=== PATIENT | male | born 1960 | race Caucasian/White ===

== ENCOUNTER 2019-07-20 21:14 | Inpatient (IN) | payer MEDICAID ==
[2019-07-20] MEDS ORDERED: Zofran 4 MG/2 ML VIAL IV ONE (21:43)
[2019-07-20] MEDS ORDERED: BABY ASPIRIN 81 MG CHEW PO ONE (21:43)
[2019-07-20] MEDS ORDERED: MORPHINE SULFATE 4 MG INJ IV ONE (21:43)
--- NOTE | 2019-07-20 21:43 | ERPHSYRPT ---
- History of Present Illness Time Seen by Provider: 07/20/19 21:32 Historian: patient Exam Limitations: no limitations Patient Subjective Stated Complaint: chest pain opff and on for 3 days also had drooping of his face but he refused to come to hospital Triage Nursing Assessment: pt is alert [id number], able to ambulate by self , gait is steady, no facial paralysis noted smile symetrical, no dysphasis or aphasia , but patient states face going numb in jaw or cheek , no edema noted, lungs clear Physician History: 58 years old male with a heavy tobacco abuse, hypertension, previous stroke with some residual weakness on the left side, multiple TIAs in the past for COPD, chronic pain syndrome but recent cervical spine surgery presented to the ER with chief complaint of moderate dull to sharp squeezing substernal/left- sided chest pain with radiation to left shoulder/neck/jaw intermittently for the last 3 days progressively worsening associated with shortness of breath/ palpitations. also reports he had some facial droop 3 days ago which is resolved at present. He does have intermittent tingling and numbness sensation in left upper extremity since he has neck surgery. Denies any history of coronary artery disease but no cardiac catheter or CT angiogram/stress test done recently. Denies any focal weakness, visual symptoms or speech impairment. Timing/Duration: day(s) (3) Quality: pressure, sharpness, tightness Location: substernal Chest Pain Radiation: jaw, neck, arm Severity of Pain-Max: moderate Severity of Pain-Current: moderate Modifying Factors: Improves With: nothing Associated Symptoms: palpitations, shortness of breath, No weakness, No syncope , No headache, No dizziness, No back pain Nitro Today/Relief: no nitro taken today Aspirin Treatment Today: 325 mg x 1 (THIS AM) Allergies/Adverse Reactions: gabapentin Allergy (Verified 07/20/19 21:28) latex Allergy (Verified 07/20/19 21:28) Penicillins Allergy (Verified 07/20/19 21:28) Home Medications: Aspirin 81 gm Chew [Baby Aspirin 81 mg Chew] 81 mg PO DAILY 07/20/19 [ History] Atorvastatin Calcium 40 mg PO DAILY 07/20/19 [History] Citalopram Hydrobromide [Celexa] 40 mg PO DAILY 07/20/19 [History] Diazepam [Valium] 4 mg PO Q6H 07/20/19 [History] Ferrous Gluconate 324 mg PO 07/20/19 [History] Hydrocodone Bit/Acetaminophen [Hydrocodon-Acetaminophen 5-325] 1 tab PO BID [History] Hydrocodone Bit/Acetaminophen [Hydrocodon-Acetaminophn 10-325] 1 tab PO DAILY [History] Loratadine 10 mg [Claritin 10 mg] 10 mg PO DAILY 07/20/19 [History] Losartan Potassium 100 mg PO DAILY 07/20/19 [History] Mometasone Furoate [Asmanex] 220 mcg IH 07/20/19 [History] PANTOPRAZOLE 40 mg Tablet [Protonix 40MG Tablet] 40 mg PO BID 07/20/19 [ History] Ropinirole HCl [Requip] 0.25 mg PO HS 07/20/19 [History] Sennosides/Docusate Sodium [Docusate Sodium-Sennosides Tab] 2 tab PO BID [History] Sildenafil Citrate 100 mg PO PRN 07/20/19 [History] Tizanidine HCl 4 mg [Zanaflex 4 MG] 4 mg PO 07/20/19 [History] Verapamil HCl 80 mg [Calan 80 mg] 80 mg PO TID 07/20/19 [History] diazePAM [Diazepam] 5 mg PO DAILY 07/20/19 [History] guaiFENesin [Guaifenesin] 400 mg PO Q4H 07/20/19 [History] Hx Tetanus, Diphtheria Vaccination/Date Given: Yes Hx Influenza Vaccination/Date Given: Yes Hx Pneumococcal Vaccination/Date Given: Yes Immunizations Up to Date: Yes - Review of Systems Constitutional: No Symptoms Eyes: No Symptoms Ears, Nose, & Throat: No Symptoms Respiratory: Cough, Dyspnea on Exertion (CARLOS), Wheezing Cardiac: Chest Pain, Palpitations Abdominal/Gastrointestinal: Abdominal Pain (chronic) Genitourinary Symptoms: No Symptoms Musculoskeletal: Arthralgias, Back Pain, Neck Pain, Joint Pain Skin: No Symptoms Neurological: Parasthesia, Sensory Changes Psychological: No Symptoms Endocrine: No Symptoms Hematologic/Lymphatic: No Symptoms Immunological/Allergic: No Symptoms - Past Medical History Pertinent Past Medical History: Yes Neurological History: Stroke, TIA Cardiac History: Hypertension, Other Respiratory History: COPD, Emphysema Musculoskeletal History: Arthritis, Degenerative Disk Disease, Other GI Medical History: Diverticulosis Psycho-Social History: Depression - Past Surgical History Past Surgical History: Yes Gastrointestinal: Hernia Repair Musculoskeletal: Orthopedic Surgery Other Surgical History: took out 3 discs and put in 3 cages with 8 screw in neck , linnette surgery - Social History Smoking Status: Current every day smoker Drug Use: none Patient Lives Alone: No - Nursing Vital Signs Nursing Vital Signs: Initial Vital Signs Temperature 98.3 F 07/20/19 21:15 Pulse Rate 85 07/20/19 21:15 Respiratory Rate 18 07/20/19 21:15 Blood Pressure 145/94 07/20/19 21:15 O2 Sat by Pulse Oximetry 99 07/20/19 21:15 Pain Scale Pain Intensity 9 - Physical Exam General Appearance: no apparent distress Eye Exam: PERRL/EOMI, eyes nml inspection, No scleral icterus Ears, Nose, Throat Exam: normal ENT inspection, pharynx normal, moist mucous membranes Neck Exam: normal inspection, supple, full range of motion, midline tenderness ( fron surgery) Respiratory Exam: wheezing, No chest tenderness, No accessory muscle use Cardiovascular Exam: regular rate/rhythm, normal heart sounds, normal peripheral pulses Gastrointestinal/Abdomen Exam: soft, tenderness Neurologic Exam: oriented x 3, cooperative, border guard II-XII nml as tested, normal mood/affect, sensory deficit (decreased sensations of touch left face /cheek but normal forehead) Skin Exam: normal color SpO2 Interpretation: normal SpO2: 99 O2 Delivery: Room Air - Course Nursing assessment & vital signs reviewed: Yes EKG Interpreted by Me: RATE (84), NORMAL AXIS, Non-specific ST Changes Ordered Tests: Active Orders 24 hr Category Date Time Status Run Boat Operator STAT Care 07/20/19 21:44 Active IV Insertion STAT Care 07/20/19 21:43 Active CHEST 1 VIEW (PORTABLE) Stat Exams 07/20/19 22:36 Ordered CHEST WITH CONTRAST [CT] Stat Exams 07/20/19 23:10 Ordered HEAD WITHOUT CONTRAST [CT] Stat Exams 07/20/19 21:46 Taken CBC W DIFF Stat Lab 07/20/19 21:54 Completed CMP Stat Lab 07/20/19 21:54 Completed D-DIMER QUANTITATION Stat Lab 07/20/19 22:47 Completed NT PRO BNP Stat Lab 07/20/19 21:54 Completed PROTIME WITH INR Stat Lab 07/20/19 21:54 Completed PTT Stat Lab 07/20/19 21:54 Completed TROPONIN Q3H Lab 07/20/19 21:54 Completed TROPONIN Q3H Lab 07/21/19 00:45 Ordered TROPONIN Q3H Lab 07/21/19 03:45 Ordered TROPONIN Q3H Lab 07/21/19 06:45 Ordered TROPONIN Q3H Lab 07/21/19 09:45 Ordered Peak Expiratory Flow Rate ONCE RT 07/20/19 22:05 Active Respiratory Therapy Assessment DAILY RT 07/20/19 22:05 Active Transfer Order Routine Transfer 07/21/19 Ordered Medication Summary Discontinued Medications Generic Name Dose Route Start Last Admin Trade Name Freq PRN Reason Stop Dose Admin Albuterol/Ipratropium 3 ml 07/20/19 21:54 07/20/19 22:06 Duoneb 0.5-3 Mg/3 Ml Neb IH 07/20/19 21:55 3 ml STAT ONE Administration Albuterol/Ipratropium Confirm 07/20/19 22:04 Duoneb 0.5-3 Mg/3 Ml Neb Administered 07/20/19 22:05 Dose 3 ml IH .STK-MED ONE Aspirin 324 mg 07/20/19 21:43 07/20/19 22:39 Baby Aspirin 81 Mg Chew PO 07/20/19 21:44 324 mg STAT ONE Administration Aspirin Confirm 07/20/19 22:38 Baby Aspirin 81 Mg Chew Administered 07/20/19 22:39 Dose 324 mg .ROUTE .STK-MED ONE Morphine Sulfate 4 mg 07/20/19 21:43 07/20/19 22:17 Morphine Sulfate 4 Mg Inj IV 07/20/19 21:44 4 mg STAT ONE Administration Morphine Sulfate Confirm 07/20/19 21:54 Morphine Sulfate 4 Mg Inj Administered 07/20/19 21:55 Dose 4 mg .ROUTE .STK-MED ONE Morphine Sulfate 4 mg 07/21/19 00:57 07/21/19 01:03 Morphine Sulfate 4 Mg Inj IV 07/21/19 00:58 4 mg STAT ONE Administration Morphine Sulfate Confirm 07/21/19 00:56 Morphine Sulfate 4 Mg Inj Administered 07/21/19 00:57 Dose 4 mg .ROUTE .STK-MED ONE Nitroglycerin 1 gm 07/20/19 22:35 07/20/19 22:39 Nitro-Bid 2% Ud Packets TOP 07/20/19 22:36 1 gm STAT ONE Administration Nitroglycerin Confirm 07/20/19 22:38 Nitro-Bid 2% Ud Packets Administered 07/20/19 22:39 Dose 1 gm .ROUTE .STK-MED ONE Ondansetron HCl 4 mg 07/20/19 21:43 07/20/19 22:17 Zofran 4 Mg/2 Ml Vial IV 07/20/19 21:44 4 mg STAT ONE Administration Ondansetron HCl Confirm 07/20/19 21:54 Zofran 4 Mg/2 Ml Vial Administered 07/20/19 21:55 Dose 4 mg .ROUTE .STK-MED ONE Lab/Rad Data: Laboratory Result Diagrams 07/20/19 21:54 07/20/19 21:54 Laboratory Results 07/20/19 07/20/19 07/20/19 Range/Units 22:47 21:54 21:54 WBC (4.0-10.5) K/mm3 RBC (4.1-5.6) M/mm3 Hgb (12.5-18.0) gm/dl Hct (42-50) % MCV (78-100) fl MCH (26-32) pg MCHC (32-36) g/dl RDW (11.5-14.0) % Plt Count (150-450) K/mm3 MPV (6-9.5) fl Gran % (36.0-66.0) % Eos # (Auto) (0-0.5) Absolute Lymphs (auto) (1.0-4.6) Absolute Monos (auto) (0.0-1.3) Lymphocytes % (24.0-44.0) % Monocytes % (0.0-12.0) % Eosinophils % (0.00-5.0) % Basophils % (0.0-0.4) % Absolute Granulocytes (1.4-6.9) Basophils # (0-0.4) PT 11.8 (8.83-12.87) SECONDS INR 1.04 (0.8-3.0) APTT 31.3 (24.1-36.1) SECONDS D-Dimer 687 H* (215-500) ng/mL Sodium (137-145) mmol/L Potassium (3.5-5.1) mmol/L Chloride (98-107) mmol/L Carbon Dioxide (22-30) mmol/L Anion Gap (5-15) MEQ/L BUN (9-20) mg/dL Creatinine (0.66-1.25) mg/dL Estimated GFR ML/MIN Glucose (74-106) mg/dL Calcium (8.4-10.2) mg/dL Total Bilirubin (0.2-1.3) mg/dL AST (17-59) U/L ALT (0-50) U/L Alkaline Phosphatase (38-126) U/L Troponin I < 0.012 (0.000-0.034) ng/mL NT-Pro-B Natriuret Pep (0-900) pg/mL Serum Total Protein (6.3-8.2) g/dL Albumin (3.5-5.0) g/dL 07/20/19 07/20/19 Range/Units 21:54 21:54 WBC 10.3 (4.0-10.5) K/mm3 RBC 5.68 H (4.1-5.6) M/mm3 Hgb 17.4 (12.5-18.0) gm/dl Hct 49.8 (42-50) % MCV 87.7 (78-100) fl MCH 30.6 (26-32) pg MCHC 34.9 (32-36) g/dl RDW 13.5 (11.5-14.0) % Plt Count 223 (150-450) K/mm3 MPV 10.5 H (6-9.5) fl Gran % 55.5 (36.0-66.0) % Eos # (Auto) 0.09 (0-0.5) Absolute Lymphs (auto) 3.62 (1.0-4.6) Absolute Monos (auto) 0.85 (0.0-1.3) Lymphocytes % 35.1 (24.0-44.0) % Monocytes % 8.2 (0.0-12.0) % Eosinophils % 0.9 (0.00-5.0) % Basophils % 0.3 (0.0-0.4) % Absolute Granulocytes 5.73 (1.4-6.9) Basophils # 0.03 (0-0.4) PT (8.83-12.87) SECONDS INR (0.8-3.0) APTT (24.1-36.1) SECONDS D-Dimer (215-500) ng/mL Sodium 138 (137-145) mmol/L Potassium 3.8 (3.5-5.1) mmol/L Chloride 104 (98-107) mmol/L Carbon Dioxide 22 (22-30) mmol/L Anion Gap 15.8 H (5-15) MEQ/L BUN 13 (9-20) mg/dL Creatinine 0.90 (0.66-1.25) mg/dL Estimated GFR > 60.0 ML/MIN Glucose 93 (74-106) mg/dL Calcium 9.9 (8.4-10.2) mg/dL Total Bilirubin 0.70 (0.2-1.3) mg/dL AST 25 (17-59) U/L ALT 25 (0-50) U/L Alkaline Phosphatase 79 (38-126) U/L Troponin I (0.000-0.034) ng/mL NT-Pro-B Natriuret Pep 83.4 (0-900) pg/mL Serum Total Protein 7.3 (6.3-8.2) g/dL Albumin 4.3 (3.5-5.0) g/dL - Progress Progress: improved, re-examined Air Movement: fair Progress Note: 07/21/19 01:12 58 years old is evaluated for intermittent chest pains. He is given aspirin/ nitroglycerin/morphine with symptomatic relief but still has some discomfort. I have obtained CT head which is negative. He does not have any other focal neuro deficit. I believe his left arm tingling is probably from recent surgery in the neck causing radiculopathy with some mild impingement. his wheezing is better after breathing treatment. Initial troponin EKG and negative. And mildly elevated d-dimer but negative CTA for any acute findings. Patient has multiple risk factors for coronary artery disease and does not have any workup done recently. I have d/w , patient would be admitted to trend cardiac enzymes and further evaluation. 07/21/19 01:19 Blood Culture(s) Obtained: No Antibiotics given: No Discussed with : Soraya Will see patient in: hospital (observation) Counseled pt/family regarding: lab results, diagnosis, rad results, smoking cessation - Departure Departure Disposition: Observation Clinical Impression: Chest pain, rule out acute myocardial infarction Condition: Stable Critical Care Time: No Referrals: HOSPITAL,'S [Primary Care Provider] -
[2019-07-20 21:52] LABS: Absolute Neutrophil Ct (ANC) 5.73 (1.4-6.9); BASOPHIL % 0.3 % (0.0-0.4); Basophil (Absolute #) 0.03 (0-0.4); Eosinophil % 0.9 % (0.00-5.0); Eosinophil (Absolute #) 0.09 (0-0.5); Hematocrit 49.8 % (42-50); Hemoglobin 17.4 gm/dl (12.5-18.0); Lymphocyte (Absolute #) 3.62 (1.0-4.6); Lymphocytes % 35.1 % (24.0-44.0); Mean Cell Volume 87.7 fl (78-100); Mean Corpuscular Hemoglobin 30.6 pg (26-32); Mean Corpuscular Hgb Concent. 34.9 g/dl (32-36); Mean Platelet Volume 10.5 fl (6-9.5); Monocyte (Absolute #) 0.85 (0.0-1.3); Monocytes % 8.2 % (0.0-12.0); Neutrophil % 55.5 % (36.0-66.0); Platelet Count 223 K/mm3 (150-450); Red Blood Count 5.68 M/mm3 (4.1-5.6); Red Cell Distribution Width 13.5 % (11.5-14.0); White Blood Count 10.3 K/mm3 (4.0-10.5)
[2019-07-20] MEDS ORDERED: MORPHINE SULFATE 4 MG INJ ONE (21:54)
[2019-07-20] MEDS ORDERED: Zofran 4 MG/2 ML VIAL ONE (21:54)
[2019-07-20] MEDS ORDERED: DUONEB 0.5-3 MG/3 ml Neb IH ONE ×2 (21:54→22:04)
[2019-07-20 22:12] LABS: ALBUMIN 4.3 g/dL (3.5-5.0); ALKALINE PHOSPHATASE 79 U/L (38-126); ANION GAP 15.8 MEQ/L (5-15); BLOOD UREA NITROGEN 13 mg/dL (9-20); CHLORIDE 104 mmol/L (98-107); Calcium 9.9 mg/dL (8.4-10.2); Carbon Dioxide 22 mmol/L (22-30); Glucose 93 mg/dL (74-106); NT PRO BNP 83.4 pg/mL (0-900); Potassium 3.8 mmol/L (3.5-5.1); SGOT/AST 25 U/L (17-59); SGPT/ALT 25 U/L (0-50); SODIUM 138 mmol/L (137-145); Total Protein 7.3 g/dL (6.3-8.2)
[2019-07-20 22:33] LABS: INR 1.04 (0.8-3.0); PROTIME 11.8 SECONDS (8.83-12.87)
[2019-07-20] MEDS ORDERED: NITRO-BID 2% UD PACKETS TOP ONE (22:35)
[2019-07-20 22:36] LABS: PTT 31.3 SECONDS (24.1-36.1)
[2019-07-20] MEDS ORDERED: NITRO-BID 2% UD PACKETS ONE (22:38)
[2019-07-20] MEDS ORDERED: BABY ASPIRIN 81 MG CHEW ONE (22:38)
[2019-07-21] MEDS ORDERED: MORPHINE SULFATE 4 MG INJ ONE (00:56)
[2019-07-21] MEDS ORDERED: MORPHINE SULFATE 4 MG INJ IV ONE (00:57)
[2019-07-21] MEDS ORDERED: MILK OF MAGNESIA 30 ML PO PRN (01:44)
[2019-07-21] MEDS ORDERED: MAALOX ES 30 ML UNIT DOSE PO PRN (01:44)
[2019-07-21] MEDS ORDERED: Zofran 4 MG/2 ML VIAL IV PRN (01:44)
[2019-07-21] MEDS ORDERED: Senokot-S Tablet PO PRN (01:44)
[2019-07-21] MEDS ORDERED: TYLENOL 325 MG PO PRN (01:44)
[2019-07-21 04:40] LABS: Absolute Neutrophil Ct (ANC) 6.69 (1.4-6.9); BASOPHIL % 0.2 % (0.0-0.4); Basophil (Absolute #) 0.03 (0-0.4); Eosinophil (Absolute #) 0.13 (0-0.5); Hematocrit 46.7 % (42-50); Hemoglobin 16.1 gm/dl (12.5-18.0); Lymphocyte (Absolute #) 4.58 (1.0-4.6); Lymphocytes % 36.8 % (24.0-44.0); Mean Cell Volume 88.4 fl (78-100); Mean Corpuscular Hemoglobin 30.5 pg (26-32); Mean Corpuscular Hgb Concent. 34.5 g/dl (32-36); Mean Platelet Volume 10.4 fl (6-9.5); Monocyte (Absolute #) 1.03 (0.0-1.3); Monocytes % 8.3 % (0.0-12.0); Neutrophil % 53.7 % (36.0-66.0); Platelet Count 199 K/mm3 (150-450); Red Blood Count 5.28 M/mm3 (4.1-5.6); Red Cell Distribution Width 13.4 % (11.5-14.0); White Blood Count 12.5 K/mm3 (4.0-10.5)
[2019-07-21 05:05] LABS: ANION GAP 14.1 MEQ/L (5-15); BLOOD UREA NITROGEN 13 mg/dL (9-20); CHLORIDE 104 mmol/L (98-107); Calcium 9.3 mg/dL (8.4-10.2); Carbon Dioxide 23 mmol/L (22-30); Cholesterol 117 mg/dL (50-200); Glucose 105 mg/dL (74-106); HDL CHOLESTEROL 31 mg/dL (40-60); LDL, DIRECT 65 mg/dL (30-100); Potassium 3.8 mmol/L (3.5-5.1); Risk Ratio 3.8; SODIUM 137 mmol/L (137-145); TRIGLYCERIDE 164 mg/dL (30-150)
[2019-07-21] MEDS ORDERED: MORPHINE SULFATE 2 MG INJ IV PRN (06:42)
[2019-07-21] MEDS: MORPHINE SULFATE 4 MG INJ IV PRN ×3 (06:52→19:01)
--- NOTE | 2019-07-21 07:07 | XRAY ---
Indication: Chest pain. History CVA, TIAs, and hypertension. Multiple contiguous axial images obtained through the chest using 100 cc Isovue 370 contrast and using PE protocol. Comparison: None There is good opacification of the pulmonary arteries to include the lobar and segmental branches. No filling defect or pulmonary embolus. Heart is not enlarged. Aorta is minimally atherosclerotic without aneurysm/dissection. A few tiny left hilar calcified nodes. No pathologic mediastinal/hilar lymphadenopathy. Lungs are inflated and clear. Bony thorax intact with minimal degenerative changes throughout the spine. Limited upper abdomen demonstrates at least 2 hepatic cysts, largest 3.8 cm adjacent to the adriana hepatis. A few calcified splenic granulomas. Impression: 1. Negative pulmonary embolus. No acute cardiopulmonary abnormalities. 2. Incidental hepatic cysts and evidence for old granulomatous disease. Comment: Preliminary interpretation was made by [facility]. No discrepancy. CTDI 23.56
--- NOTE | 2019-07-21 07:09 | XRAY ---
Indication: Chest pain. Comparison: None Portable chest is clear. Heart and mediastinal structures within normal limits. Bony thorax intact with mild degenerative changes, mild levoscoliosis, and lower cervical fusion surgery. Impression: Nonacute chest with chronic bony findings.
--- NOTE | 2019-07-21 07:09 | XRAY ---
Indication: Facial numbness and drooping. Chest pain. History CVA, TIAs, and hypertension. Multiple contiguous axial images obtained through the head without contrast. Comparison: None Ventriculosulcal pattern appears symmetric. No acute intracranial hemorrhage, abnormal extra-axial fluid collection, or mass effect. Fourth ventricle is midline without hydrocephalus. Marley-white matter differentiation preserved. Bony calvarium intact. Visualized paranasal sinuses and mastoid air cells are clear. Impression: Negative CT head without contrast exam. Comment: Preliminary interpretation was made by [facility]. No discrepancy. CTDI 67.60
[2019-07-21] MEDS ORDERED: Ecotrin 325 MG PO SCH (10:00)
[2019-07-21 10:42] LABS: AMYLASE 128 U/L (30-110); LIPASE 946 U/L (23-300)
--- NOTE | 2019-07-21 11:30 | PCM.HP ---
History of Present Illness - Chief Complaint Chief Complaint: CP r/o acute VT History of Present Illness: is a 58 year old male admitted from ER last night for substeral chest pain with radiation to left side of face. Patient reports present since yesterday. He describes the pain as both sharp and dull. He reports pain comes and goes. He reports tightness of his chest at times. Patient reports it has improved since admission. Patient denies any hx of heartburn. Patient reports he is disabled due to COPD and and hip related issues. [facility] Patient had recent neck surgery and is supposed to wear his c-collar at night. Patient reports he still smokes .5 ppd. Reports x2 a year alcohol use. Patient reports that he was tested for LACI and was found to be borderline. He does not wear cpap at night. - Review of Systems Constitutional: No Fever Eyes: No Vision Changes Ears, Nose, & Throat: No Nose Congestion, No Throat Pain Respiratory: Cough, Short Of Breath (more with ambulation) Abdominal/Gastrointestinal: Diarrhea (Patient reports some recent diarrhea. ), No Abdominal Pain, No Nausea, No Vomiting, No Constipation Genitourinary Symptoms: Other (Hx of inguinal hernia), No Dysuria, No Frequency , No Hematuria Musculoskeletal: Back Pain, Joint Pain (R hip) Skin: No Symptoms Neurological: Parasthesia (hands), No Headache Psychological: Anxiety, No Alcohol Abuse, No Depression Hematologic/Lymphatic: Anemia Medications & Allergies Home Medications: Home Medication List Aspirin 81 gm Chew [Baby Aspirin 81 mg Chew] 81 mg PO DAILY 07/20/19 [ History Confirmed 07/21/19] Atorvastatin Calcium 40 mg PO DAILY 07/20/19 [History Confirmed 07/21/19] Citalopram Hydrobromide [Celexa] 40 mg PO DAILY 07/20/19 [History Confirmed ] Diazepam [Valium] 4 mg PO Q6H PRN 07/20/19 [History Confirmed 07/20/19] Ferrous Gluconate 324 mg PO BIDWM 07/20/19 [History Confirmed 07/21/19] Hydrocodone Bit/Acetaminophen [Hydrocodon-Acetaminophn 10-325] 1 tab PO Q6H PRN 07/20/19 [History Confirmed 07/21/19] Losartan Potassium 100 mg PO DAILY 07/20/19 [History Confirmed 07/20/19] Sennosides/Docusate Sodium [Docusate Sodium-Sennosides Tab] 2 tab PO BID [History Confirmed 07/21/19] Sildenafil Citrate 100 mg PO UD PRN 07/20/19 [History Confirmed 07/21/19] Verapamil HCl 80 mg [Calan 80 mg] 80 mg PO TID 07/20/19 [History Confirmed 07/21/19] Allergies/Adverse Reactions: Allergies Allergy/AdvReac Type Severity Reaction Status Date / Time gabapentin Allergy Verified 07/20/19 21:28 latex Allergy Verified 07/20/19 21:28 Penicillins Allergy Verified 07/20/19 21:28 - Past Medical History Past Medical History: Yes Neurological History: Migraines, Stroke, TIA ENT History: No Pertinent History Cardiac History: Deep Vein Thrombosis, High Cholesterol, Hypertension, Other Respiratory History: COPD, Emphysema Endocrine Medical History: No Pertinent History Musculoskelatal History: Arthritis, Degenerative Disk Disease, Other GI Medical History: Diverticulosis, Hernia, Other History: Other Pyscho-Social History: Anxiety, Depression Male Reproductive Disorders: No Pertinent History Comment: throat cancer with radiation treatment; kidney stones - Past Surgical History Past Surgical History: Yes Neuro Surgical History: No Pertinent History Cardiac History: No Pertinent History Respiratory Surgery: No Pertinent History GI Surgical History: Hernia Repair Genitourinary Surgical Hx: No Pertinent History Musculskeletal Surgical Hx: Orthopedic Surgery Male Surgical History: No Pertinent History Other Surgical History: took out 3 discs and put in 3 cages with 8 screw in neck & pelvic surgery, hernia surgery; left foot surgery - Social History Smoking Status: Current every day smoker How long have you smoked: 30 years Exposure to second hand smoke: Yes Alcohol: Rarely Drug Use: none - Physical Exam Vital Signs: Vital Signs - 24 hr Temp Pulse Pulse Resp BP Pulse Ox 07/21/19 08:00 97 07/21/19 07:33 98 F 65 20 144/82 97 07/21/19 02:42 97.9 F 67 16 135/87 98 07/21/19 01:22 99 07/21/19 00:50 66 14 138/94 97 07/21/19 00:25 72 18 138/94 98 07/20/19 23:08 60 18 124/77 97 07/20/19 22:18 80 18 157/111 98 07/20/19 22:05 86 22 95 07/20/19 21:16 84 07/20/19 21:15 98.3 F 85 18 145/94 99 General Appearance: no apparent distress Neurologic Exam: alert, oriented x 3, cooperative, 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 Patient has a c-collar that he wears at night because of recent neck surgery) Respiratory Exam: normal breath sounds, wheezing (occasional wheeze), No diminished breath sounds, No crackles/rales Cardiovascular Exam: regular rate/rhythm, normal heart sounds, No murmur Gastrointestinal/Abdomen Exam: soft, normal bowel sounds, No tenderness, No distention, No guarding, No rebound, No hernia Rectal Exam: deferred Extremity Exam: normal inspection, swelling (Mild left lower leg swelling) Skin Exam: normal color, warm, dry, No rash Lymphatic Exam: No adenopathy Results - Labs Lab/Micro Results: Lab Results-Last 24 Hours 07/20/19 07/20/19 07/20/19 Range/Units 21:54 21:54 21:54 WBC 10.3 (4.0-10.5) K/mm3 RBC 5.68 H (4.1-5.6) M/mm3 Hgb 17.4 (12.5-18.0) gm/dl Hct 49.8 (42-50) % MCV 87.7 (78-100) fl MCH 30.6 (26-32) pg MCHC 34.9 (32-36) g/dl RDW 13.5 (11.5-14.0) % Plt Count 223 (150-450) K/mm3 MPV 10.5 H (6-9.5) fl Gran % 55.5 (36.0-66.0) % Eos # (Auto) 0.09 (0-0.5) Absolute Lymphs (auto) 3.62 (1.0-4.6) Absolute Monos (auto) 0.85 (0.0-1.3) Lymphocytes % 35.1 (24.0-44.0) % Monocytes % 8.2 (0.0-12.0) % Eosinophils % 0.9 (0.00-5.0) % Basophils % 0.3 (0.0-0.4) % Absolute Granulocytes 5.73 (1.4-6.9) Basophils # 0.03 (0-0.4) PT 11.8 (8.83-12.87) SECONDS INR 1.04 (0.8-3.0) APTT 31.3 (24.1-36.1) SECONDS D-Dimer (215-500) ng/mL Sodium 138 (137-145) mmol/L Potassium 3.8 (3.5-5.1) mmol/L Chloride 104 (98-107) mmol/L Carbon Dioxide 22 (22-30) mmol/L Anion Gap 15.8 H (5-15) MEQ/L BUN 13 (9-20) mg/dL Creatinine 0.90 (0.66-1.25) mg/dL Estimated GFR > 60.0 ML/MIN Glucose 93 (74-106) mg/dL Calcium 9.9 (8.4-10.2) mg/dL Total Bilirubin 0.70 (0.2-1.3) mg/dL AST 25 (17-59) U/L ALT 25 (0-50) U/L Alkaline Phosphatase 79 (38-126) U/L Troponin I (0.000-0.034) ng/mL NT-Pro-B Natriuret Pep 83.4 (0-900) pg/mL Serum Total Protein 7.3 (6.3-8.2) g/dL Albumin 4.3 (3.5-5.0) g/dL Triglycerides (30-150) mg/dL Cholesterol (50-200) mg/dL LDL Cholesterol (30-100) mg/dL HDL Cholesterol (40-60) mg/dL Heart Disease Risk Ratio Amylase (30-110) U/L Lipase (23-300) U/L 07/20/19 07/20/19 07/21/19 Range/Units 21:54 22:47 00:58 WBC (4.0-10.5) K/mm3 RBC (4.1-5.6) M/mm3 Hgb (12.5-18.0) gm/dl Hct (42-50) % MCV (78-100) fl MCH (26-32) pg MCHC (32-36) g/dl RDW (11.5-14.0) % Plt Count (150-450) K/mm3 MPV (6-9.5) fl Gran % (36.0-66.0) % Eos # (Auto) (0-0.5) Absolute Lymphs (auto) (1.0-4.6) Absolute Monos (auto) (0.0-1.3) Lymphocytes % (24.0-44.0) % Monocytes % (0.0-12.0) % Eosinophils % (0.00-5.0) % Basophils % (0.0-0.4) % Absolute Granulocytes (1.4-6.9) Basophils # (0-0.4) PT (8.83-12.87) SECONDS INR (0.8-3.0) APTT (24.1-36.1) SECONDS D-Dimer 687 H* (215-500) ng/mL Sodium (137-145) mmol/L Potassium (3.5-5.1) mmol/L Chloride (98-107) mmol/L Carbon Dioxide (22-30) mmol/L Anion Gap (5-15) MEQ/L BUN (9-20) mg/dL Creatinine (0.66-1.25) mg/dL Estimated GFR ML/MIN Glucose (74-106) mg/dL Calcium (8.4-10.2) mg/dL Total Bilirubin (0.2-1.3) mg/dL AST (17-59) U/L ALT (0-50) U/L Alkaline Phosphatase (38-126) U/L Troponin I < 0.012 < 0.012 (0.000-0.034) ng/mL NT-Pro-B Natriuret Pep (0-900) pg/mL Serum Total Protein (6.3-8.2) g/dL Albumin (3.5-5.0) g/dL Triglycerides (30-150) mg/dL Cholesterol (50-200) mg/dL LDL Cholesterol (30-100) mg/dL HDL Cholesterol (40-60) mg/dL Heart Disease Risk Ratio Amylase (30-110) U/L Lipase (23-300) U/L 07/21/19 07/21/19 07/21/19 Range/Units 04:00 04:00 04:00 WBC 12.5 H (4.0-10.5) K/mm3 RBC 5.28 (4.1-5.6) M/mm3 Hgb 16.1 (12.5-18.0) gm/dl Hct 46.7 (42-50) % MCV 88.4 (78-100) fl MCH 30.5 (26-32) pg MCHC 34.5 (32-36) g/dl RDW 13.4 (11.5-14.0) % Plt Count 199 (150-450) K/mm3 MPV 10.4 H (6-9.5) fl Gran % 53.7 (36.0-66.0) % Eos # (Auto) 0.13 (0-0.5) Absolute Lymphs (auto) 4.58 (1.0-4.6) Absolute Monos (auto) 1.03 (0.0-1.3) Lymphocytes % 36.8 (24.0-44.0) % Monocytes % 8.3 (0.0-12.0) % Eosinophils % 1.0 (0.00-5.0) % Basophils % 0.2 (0.0-0.4) % Absolute Granulocytes 6.69 (1.4-6.9) Basophils # 0.03 (0-0.4) PT (8.83-12.87) SECONDS INR (0.8-3.0) APTT (24.1-36.1) SECONDS D-Dimer (215-500) ng/mL Sodium 137 (137-145) mmol/L Potassium 3.8 (3.5-5.1) mmol/L Chloride 104 (98-107) mmol/L Carbon Dioxide 23 (22-30) mmol/L Anion Gap 14.1 (5-15) MEQ/L BUN 13 (9-20) mg/dL Creatinine 0.90 (0.66-1.25) mg/dL Estimated GFR > 60.0 ML/MIN Glucose 105 (74-106) mg/dL Calcium 9.3 (8.4-10.2) mg/dL Total Bilirubin (0.2-1.3) mg/dL AST (17-59) U/L ALT (0-50) U/L Alkaline Phosphatase (38-126) U/L Troponin I < 0.012 (0.000-0.034) ng/mL NT-Pro-B Natriuret Pep (0-900) pg/mL Serum Total Protein (6.3-8.2) g/dL Albumin (3.5-5.0) g/dL Triglycerides 164 H (30-150) mg/dL Cholesterol 117 (50-200) mg/dL LDL Cholesterol 65 (30-100) mg/dL HDL Cholesterol 31 L (40-60) mg/dL Heart Disease Risk Ratio 3.8 Amylase (30-110) U/L Lipase (23-300) U/L 07/21/19 07/21/19 07/21/19 Range/Units 04:00 07:00 09:50 WBC (4.0-10.5) K/mm3 RBC (4.1-5.6) M/mm3 Hgb (12.5-18.0) gm/dl Hct (42-50) % MCV (78-100) fl MCH (26-32) pg MCHC (32-36) g/dl RDW (11.5-14.0) % Plt Count (150-450) K/mm3 MPV (6-9.5) fl Gran % (36.0-66.0) % Eos # (Auto) (0-0.5) Absolute Lymphs (auto) (1.0-4.6) Absolute Monos (auto) (0.0-1.3) Lymphocytes % (24.0-44.0) % Monocytes % (0.0-12.0) % Eosinophils % (0.00-5.0) % Basophils % (0.0-0.4) % Absolute Granulocytes (1.4-6.9) Basophils # (0-0.4) PT (8.83-12.87) SECONDS INR (0.8-3.0) APTT (24.1-36.1) SECONDS D-Dimer (215-500) ng/mL Sodium (137-145) mmol/L Potassium (3.5-5.1) mmol/L Chloride (98-107) mmol/L Carbon Dioxide (22-30) mmol/L Anion Gap (5-15) MEQ/L BUN (9-20) mg/dL Creatinine (0.66-1.25) mg/dL Estimated GFR ML/MIN Glucose (74-106) mg/dL Calcium (8.4-10.2) mg/dL Total Bilirubin (0.2-1.3) mg/dL AST (17-59) U/L ALT (0-50) U/L Alkaline Phosphatase (38-126) U/L Troponin I < 0.012 < 0.012 (0.000-0.034) ng/mL NT-Pro-B Natriuret Pep (0-900) pg/mL Serum Total Protein (6.3-8.2) g/dL Albumin (3.5-5.0) g/dL Triglycerides (30-150) mg/dL Cholesterol (50-200) mg/dL LDL Cholesterol (30-100) mg/dL HDL Cholesterol (40-60) mg/dL Heart Disease Risk Ratio Amylase 128 H (30-110) U/L Lipase 946 H (23-300) U/L - Radiology Impressions Radiology Exams & Impressions: Radiology Procedures Category Date Time Status CHEST 1 VIEW (PORTABLE) Stat Exams 07/20/19 22:36 Completed CHEST WITH CONTRAST [CT] Stat Exams 07/20/19 23:10 Completed GALLBLADDER [US] Urgent Exams 07/21/19 Ordered HEAD WITHOUT CONTRAST [CT] Stat Exams 07/20/19 21:46 Completed - Other Procedures and Tests Respiratory Therapy 07/21/19 01:44 Oxygen Nasal Cannula 2 lpm 07/22/19 05:00 EKG ROUTINE 07/23/19 05:00 EKG ROUTINE Assessment/Plan (1) Chest pain, rule out acute myocardial infarction Current Visit: Yes Status: Acute Assessment & Plan: Patient has had neg trop and neg EKG. Patient likely does not have ACS. Will continue to monitor for any acute changes in patient's CP. Patient reports he had a stress test done 4 years ago that had to be discontinued due to SOB. Code(s): R07.9 - CHEST PAIN, UNSPECIFIED (2) Pancreatitis Current Visit: Yes Status: Acute Assessment & Plan: Patient is reporting substernal chest pain. EKG and trops x4 neg for ACS. Patient had elevated lipase and amylase more indicative of an acute pancreatitis. Patient will be NPO. Patient will have q4h morphine PRN for pain. Patient will continue on IV fluids at 200ml/hr. GB US ordered for tomorrow. Patient may need surgery consult depending on the results. Code(s): K85.90 - ACUTE PANCREATITIS WITHOUT NECROSIS OR INFECTION, UNSP (3) HTN (hypertension) Current Visit: Yes Status: Acute Assessment & Plan: Hx of HTN will continue on routine home meds. Will continue to monitor BP Code(s): I10 - ESSENTIAL (PRIMARY) HYPERTENSION (4) Anxiety Current Visit: Yes Status: Acute Assessment & Plan: Patient has hx of anxiety. Will continue with routine home meds. Code(s): F41.9 - ANXIETY DISORDER, UNSPECIFIED
[2019-07-21] MEDS ORDERED: DIAZEPAM PO PRN (13:09)
[2019-07-21] MEDS ORDERED: SILDENAFIL CITRATE 100 MG PO PRN (13:09)
[2019-07-21] MEDS ORDERED: Valium 5 MG PO PRN (13:30)
[2019-07-21] MEDS ORDERED: MEDICATION INTERVENTION MC SCH (13:45)
[2019-07-21] MEDS: Sodium Chloride 0.9% 1000 ML 1,000 ML IV SCH ×2 (14:05→19:27)
[2019-07-21] MEDS: Cozaar 50 MG PO SCH (14:05)
[2019-07-21] MEDS: ceLEXa 20 MG PO SCH (14:05)
[2019-07-21] MEDS: CALAN 80 MG PO SCH ×2 (14:34→22:03)
[2019-07-21] MEDS ORDERED: NON-FORMULARY ITEM (Ferrous Gluconate [Ferrous Gluconate] 324 MG) PO SCH (17:00)
[2019-07-21] MEDS: FEOSOL 325 MG PO SCH (18:53)
[2019-07-21] MEDS: Senokot-S Tablet PO SCH (22:03)
[2019-07-21] MEDS: ZOCOR 20MG PO SCH (22:04)
[2019-07-21] MEDS: Norco 10/325 MG Tablet PO PRN (22:04)
[2019-07-22] MEDS: Sodium Chloride 0.9% 1000 ML 1,000 ML IV SCH ×4 (00:12→19:58)
--- NOTE | 2019-07-22 07:58 | PCM.NOTE ---
Date and Time: 07/22/19 0751 Subjective Assessment: 58 yr old male seen this am following admission for ACS rule out. Patient reports that he feels better this am. He still feels the chest discomfort. He describes it as more dull in nature and that it comes and goes. Patient was able to tolerate his clear liquid diet yesterday and is anxious to progress his diet. No other reported concerns this am. - Review of Systems Constitutional: No Fever Respiratory: No Symptoms Cardiac: Chest Pain, No Edema Abdominal/Gastrointestinal: Abdominal Pain, Other (Patient is reporting R lower quadrant pain where his previous hernia surgery was. ) Musculoskeletal: Neck Pain (Hx of recent neck surgery requiring c-collar), Other (R hip pain ) Neurological: Other Psychological: Anxiety Objective Exam General Appearance: no apparent distress, other (Patient was resting comfortably in bed) Neurologic Exam: alert, oriented x 3, cooperative, normal mood/affect Skin Exam: normal color, warm, dry Eye Exam: eyes nml inspection Ears, Nose, Throat Exam: moist mucous membranes Neck Exam: other (Patient had c-collar on this am) Respiratory Exam: normal breath sounds, No chest tenderness, No respiratory distress, No diminished breath sounds, No crackles/rales, No wheezing Cardiovascular Exam: regular rate/rhythm, normal heart sounds, No murmur Gastrointestinal/Abdomen Exam: soft, normal bowel sounds, No tenderness, No distention, No guarding, No rebound Extremity Exam: normal inspection, No pedal edema OBJECTIVE DATA Vital Signs: Vital Signs - 24 hr Temp Pulse Resp BP Pulse Ox 07/22/19 07:18 97.6 F 64 20 142/81 95 07/22/19 05:00 97.6 F 63 16 146/87 97 07/22/19 04:00 97 07/22/19 01:12 97.8 F 71 18 152/87 98 07/22/19 00:00 98 07/21/19 21:00 97.8 F 59 L 18 143/92 98 07/21/19 20:00 98 07/21/19 16:00 98.4 F 68 18 130/74 95 07/21/19 13:00 98 F 62 20 118/75 95 07/21/19 08:00 97 Pain Assessment - Last Documented Pain Intensity 6 Pain Scale Used 0-10 Pain Scale,FLACC Intake and Output: Intake & Output 07/19/19 07/20/19 07/21/19 07/22/19 11:59 11:59 11:59 11:59 Intake Total 420 3007 Output Total 350 Balance 420 2657 Weight 97.7 kg 97.8 kg Lab Results: Lab Results-Last 24 Hours 07/21/19 07/21/19 07/21/19 Range/Units 04:00 07:00 09:50 Troponin I < 0.012 < 0.012 (0.000-0.034) ng/mL Amylase 128 H (30-110) U/L Lipase 946 H (23-300) U/L Radiology Exams: Radiology Procedures Category Date Time Status CHEST 1 VIEW (PORTABLE) Stat Exams 07/20/19 22:36 Completed CHEST WITH CONTRAST [CT] Stat Exams 07/20/19 23:10 Completed GALLBLADDER [US] Urgent Exams 07/22/19 Ordered HEAD WITHOUT CONTRAST [CT] Stat Exams 07/20/19 21:46 Completed Assessment/Plan (1) Chest pain, rule out acute myocardial infarction Current Visit: Yes Status: Acute Assessment & Plan: Trops have been neg x3 and ekg were wnl. Patient is still complaining of chest pain however this is likely more related to acute pancreatitis. Patient has been going outside to smoke and tele is unable to monitor him outside. Nursing staff will discuss importance of continued monitoring as patient is still complaining of chest and is getting Morphine Code(s): R07.9 - CHEST PAIN, UNSPECIFIED (2) Pancreatitis Current Visit: Yes Status: Acute Code(s): K85.90 - ACUTE PANCREATITIS WITHOUT NECROSIS OR INFECTION, UNSP (3) HTN (hypertension) Current Visit: Yes Status: Acute Assessment & Plan: Will resume home meds and continue to monitor bp. Code(s): I10 - ESSENTIAL (PRIMARY) HYPERTENSION (4) Anxiety Current Visit: Yes Status: Acute Assessment & Plan: Will resume home meds Code(s): F41.9 - ANXIETY DISORDER, UNSPECIFIED
[2019-07-22 08:00] LABS: Absolute Neutrophil Ct (ANC) 4.45 (1.4-6.9); BASOPHIL % 0.2 % (0.0-0.4); Basophil (Absolute #) 0.02 (0-0.4); Eosinophil % 1.3 % (0.00-5.0); Eosinophil (Absolute #) 0.12 (0-0.5); Hematocrit 50.2 % (42-50); Hemoglobin 17.1 gm/dl (12.5-18.0); Lymphocyte (Absolute #) 3.82 (1.0-4.6); Mean Cell Volume 89.6 fl (78-100); Mean Corpuscular Hemoglobin 30.5 pg (26-32); Mean Corpuscular Hgb Concent. 34.1 g/dl (32-36); Mean Platelet Volume 10.1 fl (6-9.5); Monocyte (Absolute #) 0.68 (0.0-1.3); Monocytes % 7.5 % (0.0-12.0); Platelet Count 184 K/mm3 (150-450); Red Cell Distribution Width 13.6 % (11.5-14.0); White Blood Count 9.1 K/mm3 (4.0-10.5)
[2019-07-22] MEDS: FEOSOL 325 MG PO SCH ×2 (08:07→16:21)
[2019-07-22] MEDS ORDERED: NICODERM CQ 14 MG TOP PRN (08:07)
[2019-07-22] MEDS: Norco 10/325 MG Tablet PO PRN ×3 (08:10→23:49)
[2019-07-22 08:58] LABS: BLOOD UREA NITROGEN 9 mg/dL (9-20); CHLORIDE 109 mmol/L (98-107); Calcium 9.1 mg/dL (8.4-10.2); Carbon Dioxide 22 mmol/L (22-30); Glucose 89 mg/dL (74-106); Potassium 4.3 mmol/L (3.5-5.1); SODIUM 140 mmol/L (137-145)
[2019-07-22] MEDS: Cozaar 50 MG PO SCH (09:40)
[2019-07-22] MEDS: CALAN 80 MG PO SCH ×3 (09:40→21:27)
[2019-07-22] MEDS: ECOTRIN 81 MG PO SCH (09:40)
[2019-07-22] MEDS: ceLEXa 20 MG PO SCH (09:40)
[2019-07-22] MEDS: Senokot-S Tablet PO SCH ×2 (09:41→21:26)
[2019-07-22] MEDS ORDERED: NON-FORMULARY ITEM (Losartan Potassium [Losartan Potassium] 100 MG) PO SCH (10:00)
[2019-07-22] MEDS ORDERED: NON-FORMULARY ITEM (Citalopram Hydrobromide [Celexa] 40 MG) PO SCH (10:00)
[2019-07-22] MEDS ORDERED: BABY ASPIRIN 81 MG CHEW PO SCH (10:00)
[2019-07-22] MEDS ORDERED: NON-FORMULARY ITEM (Atorvastatin Calcium [Atorvastatin Calcium] 40 MG) PO SCH (10:00)
--- NOTE | 2019-07-22 10:42 | XRAY ---
Indication: Elevated lipase and pain. Two-dimensional gallbladder sonogram performed. Comparison: None Pancreas obscured due to overlying bowel gas. Gallbladder normally distended without gallstones, wall thickening, or pericholecystic fluid. Common bile duct measures 4.9 mm. Remaining visualized portions of the liver and right kidney appear sonographically unremarkable. Right kidney measures 10.3 cm in length. No ascites. Impression: Pancreas obscured. Remaining gallbladder sonogram is negative.
--- NOTE | 2019-07-22 13:31 | XRAY ---
Indication: Right lower quadrant pain. Pancreatitis. Negative same day gallbladder sonogram. Multiple contiguous images obtained through the abdomen and pelvis using 80 cc Isovue 370 contrast only. Comparison: None CT chest reported July 20, 2019. Small hiatal hernia with partial intrathoracic stomach. Noncontrasted stomach and bowel loops appear nonobstructed. Normal appendix. There is mild scattered colonic fecal debris greatest in the transverse and descending colon. Also mild scattered descending/sigmoid diverticulosis without diverticulitis. No free fluid/air. Hepatic/splenic calcified granulomas. Liver demonstrates at least 2 cysts, largest adjacent to the adriana hepatis measuring 3.8 cm. 8 mm left mid pole exophytic cyst. Urinary bladder is markedly distended concerning for outlet obstruction versus neurogenic bladder. Remaining liver, gallbladder, pancreas, spleen, adrenal glands, kidneys, ureters, and bladder appear unremarkable. Mild scattered vascular calcifications. No AAA or pathologic retroperitoneal lymphadenopathy. Osseous structures demonstrate mild degenerative changes throughout the thoracolumbar spine. Previous L4-S1 fusion and laminectomy surgery. No ventral or inguinal hernias. Impression: 1. Small hiatal hernia, new since CT chest exam 2 days ago. 2. Mild fecal stasis without obstruction and scattered colonic diverticulosis. 3. Markedly distended urinary bladder. Rule out outlet obstruction versus neurogenic bladder. 4. Incidental hepatic cysts, left renal cyst, lower lumbar surgery, and evidence for old granulomatous disease. CTDI 23.68
[2019-07-22] MEDS: ZOCOR 20MG PO SCH (21:26)
[2019-07-23] MEDS: Sodium Chloride 0.9% 1000 ML 1,000 ML IV SCH ×4 (05:49→21:49)
[2019-07-23] MEDS: FEOSOL 325 MG PO SCH ×2 (07:20→16:15)
[2019-07-23] MEDS: Norco 10/325 MG Tablet PO PRN ×3 (08:27→23:30)
[2019-07-23] MEDS: CALAN 80 MG PO SCH ×3 (09:31→21:50)
[2019-07-23] MEDS: Cozaar 50 MG PO SCH (09:31)
[2019-07-23] MEDS: ceLEXa 20 MG PO SCH (09:31)
[2019-07-23] MEDS: ECOTRIN 81 MG PO SCH (09:32)
[2019-07-23] MEDS: Senokot-S Tablet PO SCH ×2 (09:32→21:49)
[2019-07-23] MEDS: ZOCOR 20MG PO SCH (21:50)
[2019-07-23 23:51] VITALS: O2SAT 98
[2019-07-24] MEDS: Sodium Chloride 0.9% 1000 ML 1,000 ML IV SCH ×2 (02:55→08:22)
[2019-07-24 04:59] LABS: Hematocrit 41.5 % (42-50); Hemoglobin 14.3 gm/dl (12.5-18.0); Mean Cell Volume 88.9 fl (78-100); Mean Corpuscular Hemoglobin 30.6 pg (26-32); Mean Corpuscular Hgb Concent. 34.5 g/dl (32-36); Mean Platelet Volume 10.3 fl (6-9.5); Platelet Count 164 K/mm3 (150-450); Red Blood Count 4.67 M/mm3 (4.1-5.6); Red Cell Distribution Width 13.1 % (11.5-14.0); White Blood Count 8.6 K/mm3 (4.0-10.5)
[2019-07-24 05:09] LABS: ALBUMIN 3.3 g/dL (3.5-5.0); ALKALINE PHOSPHATASE 74 U/L (38-126); AMYLASE 75 U/L (30-110); ANION GAP 10.8 MEQ/L (5-15); BLOOD UREA NITROGEN 7 mg/dL (9-20); CHLORIDE 107 mmol/L (98-107); Calcium 9.1 mg/dL (8.4-10.2); Carbon Dioxide 23 mmol/L (22-30); Creatinine 1 0.76 mg/dL (0.66-1.25); Glucose 96 mg/dL (74-106); LIPASE 289 U/L (23-300); Potassium 3.8 mmol/L (3.5-5.1); SGOT/AST 30 U/L (17-59); SGPT/ALT 21 U/L (0-50); SODIUM 137 mmol/L (137-145); Total Protein 5.8 g/dL (6.3-8.2)
[2019-07-24] MEDS: Norco 10/325 MG Tablet PO PRN (06:45)
[2019-07-24 07:50] VITALS: PULSE 69
[2019-07-24] MEDS: FEOSOL 325 MG PO SCH (08:19)
--- NOTE | 2019-07-24 08:55 | PCM.DS ---
Discharge Summary Date of Admission: 07/21/19 11:25 Date of Discharge: 07/24/19 Admitting Physician: REGINE GOMES MD Primary Care Provider: [facility] Allergies Allergies gabapentin Allergy (Verified 07/20/19 21:28) latex Allergy (Verified 07/20/19 21:28) Penicillins Allergy (Verified 07/20/19 21:28) Hospital Summary - Hospital Course Hospital Course: is a 58 year old male admitted from ER for substeral chest pain with radiation to left side of face. Patient reports pain had been present the day before coming into the ER. He described the pain as both sharp and dull. He stated the pain comes and goes. He reported tightness of his chest at times. Patient reports it has improved since admission. Patient denies any hx of heartburn. Patient reports he is disabled due to COPD and and hip related issues. He has received most of his care through the MD. Patient had recent neck surgery and is supposed to wear his c-collar at night. Patient reports he still smokes .5 ppd. Reports x2 a year alcohol use. Patient reports that he was tested for LACI and was found to be borderline. He does not wear cpap at night. Patient was admitted to observation for ACS rule out. Trop and Ekg were neg for ACS. Additional labs indicated acute pancreatitis. Patient was made NPO and had IV fluids increased and was given pain medication. The pain started to improve but was still present. Patient had GB us which did not show any gallbladder disease and the pancreas was not well visualized. Patient then had CT with contrast which showed hiatal hernia. Patient was feeling better and wanted to go home. Patient is scheduled for outpatient HIDA scan and will follow up with Dr Rand for a EGD and consultation about his R inguinal hernia. Patient was cautioned about not advancing his diet too quickly. - Vitals & Intake/Output Vital Signs: Vital Signs Temperature 97.6 F 07/24/19 07:50 Pulse Rate 69 07/24/19 07:50 Respiratory Rate 18 07/24/19 07:50 Blood Pressure 190/93 07/24/19 07:50 O2 Sat by Pulse Oximetry 98 07/24/19 07:50 Intake & Output: Intake & Output 07/21/19 07/22/19 07/23/19 07/24/19 11:59 11:59 11:59 11:59 Intake Total 420 3007 5952 6674 Output Total 350 3600 4200 Balance 420 1385 7373 8769 Weight 97.7 kg 97.8 kg 100.9 kg 100.9 kg - Lab Result Diagrams: 07/24/19 04:55 07/24/19 04:55 Lab Results-Last 24 Hrs: Lab Results-Last 24 Hours 07/24/19 07/24/19 Range/Units 04:55 04:55 WBC 8.6 (4.0-10.5) K/mm3 RBC 4.67 (4.1-5.6) M/mm3 Hgb 14.3 (12.5-18.0) gm/dl Hct 41.5 L (42-50) % MCV 88.9 (78-100) fl MCH 30.6 (26-32) pg MCHC 34.5 (32-36) g/dl RDW 13.1 (11.5-14.0) % Plt Count 164 (150-450) K/mm3 MPV 10.3 H (6-9.5) fl Sodium 137 (137-145) mmol/L Potassium 3.8 (3.5-5.1) mmol/L Chloride 107 (98-107) mmol/L Carbon Dioxide 23 (22-30) mmol/L Anion Gap 10.8 (5-15) MEQ/L BUN 7 L (9-20) mg/dL Creatinine 0.76 (0.66-1.25) mg/dL Estimated GFR > 60.0 ML/MIN Glucose 96 (74-106) mg/dL Calcium 9.1 (8.4-10.2) mg/dL Total Bilirubin 0.40 (0.2-1.3) mg/dL AST 30 (17-59) U/L ALT 21 (0-50) U/L Alkaline Phosphatase 74 (38-126) U/L Serum Total Protein 5.8 L (6.3-8.2) g/dL Albumin 3.3 L (3.5-5.0) g/dL Amylase 75 (30-110) U/L Lipase 289 (23-300) U/L - Radiology Exams Ordered Rad Exams-Entire Visit: Radiology Procedures Category Date Time Status ABDOMEN AND PELVIS W CONTRAST [CT] Urgent Exams 07/22/19 11:30 Completed GALLBLADDER [US] Urgent Exams 07/22/19 10:25 Completed HIDA-GALL BLADDER [NUCMED] Routine Exams 07/25/19 Ordered - Procedures and Test Procedures and Tests throughout Hospitalization: Therapy Orders & Screens 07/20/19 22:05 Peak Expiratory Flow Rate ONCE Comment: Reason For Exam: Respiratory Therapy Assessment DAILY Comment: 07/21/19 01:44 Oxygen Nasal Cannula 2 lpm Comment: 07/21/19 03:06 Smoking Cessation Education ONCE Comment: Diagnosis: CP r/o acute ID Smoking Status: Current every day smoker How long have you smoked: 30 years Have you smoked in the past 12 months: Yes Approximately how many cigarettes per day: 1/2 pack Do you dip or chew tobacco: No 07/21/19 05:34 EKG ROUTINE Comment: Diagnosis: CP r/o acute ID 07/22/19 05:00 EKG ROUTINE Comment: Diagnosis: CP r/o acute ID 07/23/19 05:00 EKG ROUTINE Comment: Diagnosis: CP r/o acute ID Discharge Exam General Appearance: no apparent distress Neurologic Exam: alert, oriented x 3, cooperative, normal mood/affect, other ( Patient has c-collar that he wears at night.) Eye Exam: eyes nml inspection Ears, Nose, Throat Exam: moist mucous membranes Neck Exam: normal inspection (Patient has c-collar that he wears at night) Respiratory Exam: normal breath sounds, lungs clear, No chest tenderness, No respiratory distress Cardiovascular Exam: regular rate/rhythm, normal heart sounds, No murmur, No friction rub, No gallop Gastrointestinal/Abdomen Exam: soft, normal bowel sounds, No tenderness, No guarding, No rebound Skin Exam: normal color, warm, dry, No rash Comments: When I went to see patient this am he was outside. Nursing staff had reported that he was going outside to smoke but patient stated he was going out to make phone calls as he could not get good medical receptionist biller in the hospital 07/25/19 16:29 Final Diagnosis/Problem List - Final Discharge Diagnosis/Problem (1) Chest pain, rule out acute myocardial infarction Status: Acute Assessment & Plan: Patient had neg trop and normal ekg so ACS was ruled out. Not likely cardiac in nature but patient should get outpatient stress test and stop smoking and continue with his blood pressure medications. Code(s): R07.9 - CHEST PAIN, UNSPECIFIED (2) Pancreatitis Status: Acute Assessment & Plan: Patient was found to have acute pancreatitis. He improved with pain meds and IV fluids. His diet was advanced as tolerated. Patient was counseled about risk factors for pancreatitis and patient will have further studies done as outpatient Code(s): K85.90 - ACUTE PANCREATITIS WITHOUT NECROSIS OR INFECTION, UNSP (3) HTN (hypertension) Status: Acute Assessment & Plan: Patient will likely need to have his bp meds readdressed as outpatient. Code(s): I10 - ESSENTIAL (PRIMARY) HYPERTENSION (4) Anxiety Status: Acute Assessment & Plan: Will continue routine home meds. Code(s): F41.9 - ANXIETY DISORDER, UNSPECIFIED - Discharge Disposition: Home, Self-Care Condition: Stable Prescriptions: New Nicotine 14 mg [Nicoderm Cq 14 mg] 14 mg TOP DAILY PRN PRN patch PRN Reason: smoking Ketorolac Tromethamine [Toradol] 10 mg PO Q4-6HPRN PRN #12 tablet PRN Reason: Chest Pain Ondansetron ODT 4 MG [Zofran Odt 4 mg] 4 mg PO Q6H PRN PRN #10 tab.rapdis PRN Reason: Nausea/Vomiting Continue Aspirin 81 gm Chew [Baby Aspirin 81 mg Chew] 81 mg PO DAILY Verapamil HCl 80 mg [Calan 80 mg] 80 mg PO TID Sildenafil Citrate 100 mg PO UD PRN PRN Reason: Erectile Dysfunction Sennosides/Docusate Sodium [Docusate Sodium-Sennosides Tab] 2 tab PO BID Losartan Potassium 100 mg PO DAILY Hydrocodone Bit/Acetaminophen [Hydrocodon-Acetaminophn 10-325] 1 tab PO Q6H PRN PRN Reason: Pain Ferrous Gluconate 324 mg PO BIDWM Diazepam [Valium] 4 mg PO Q6H PRN PRN Reason: Muscle Spasms Citalopram Hydrobromide [Celexa] 40 mg PO DAILY Atorvastatin Calcium 40 mg PO DAILY Outpatient Orders: HIDA-GALL BLADDER [NUCMED] Location: RADIOLOGY Instructions: Pancreatitis (DC), HIDA Scan Additional Instructions: PLEASE COME TO [facility] AT 10:30, 07/25-(TOMORROW) FOR HIDA SCAN. --NOTHING TO EAT OR DRINK TONIGHT AFTER MIDNIGHT. --NO NARCOTICS FOR 12 HOURS BEFORE SCAN. Follow up with: REGINE GOMES MD [ACTIVE STAFF] - 07/31/19 10:15 am ANA RAND [ACTIVE STAFF] - 08/01/19 2:25 pm
[2019-07-24 09:20] VITALS: BP 150/82
== END 2019-07-24 09:20 | disposition home or self-care (01) | DRG 313 ==
LOC: ED 21:14 → MED SURG 07-21 01:41 → OBSVTOIN 07-21 11:25
PROVIDERS: ADMIT Family Medicine; ATTEND Family Medicine
DX: R07.9 Chest pain, unspecified (principal); K85.90 Acute pancreatitis without necrosis or infection, unspecified; I10 Essential (primary) hypertension; F41.9 Anxiety disorder, unspecified; J44.9 Chronic obstructive pulmonary disease, unspecified; M25.551 Pain in right hip; M54.2 Cervicalgia; M54.9 Dorsalgia, unspecified; E78.00 Pure hypercholesterolemia, unspecified; R19.7 Diarrhea, unspecified; Z79.899 Other long term (current) drug therapy
CPT/HCPCS: 36000; 36415; 70450; 71045; 71260; 74177; 76705; 80048; 80053; 80061; 82150; 83690; 83721; 83880; 84484; 85025; 85027; 85379; 85610; 85730; 93005; 93041; 94150; 94640; 94760; 96374; 96375; 96376; 99285; J2270; J2405; A9270-GY

== ENCOUNTER 2019-10-17 13:33 | Emergency (ER) | payer MEDICAID, OTHER ==
[2019-10-17] MEDS ORDERED: Sodium Chloride 0.9% 1000 ML 1,000 ML IV STA (13:57)
[2019-10-17] MEDS ORDERED: Sodium Chloride 0.9% 1000 ML 1,000 ML ONE (14:17)
--- NOTE | 2019-10-17 14:23 | ERPHSYRPT ---
- History of Present Illness Time Seen by Provider: 10/17/19 13:56 Historian: patient Exam Limitations: no limitations Physician History: Location: lower abdomen pain and possible lower GI bleed Quality: dull aching Radiation: none Severity: moderate Duration: several weeks Timing: gradual Modifying factors/associated signs and symptoms: CT scan at [place]. No follow up after that. Allergies/Adverse Reactions: gabapentin Allergy (Verified 07/20/19 21:28) latex Allergy (Verified 07/20/19 21:28) Penicillins Allergy (Verified 07/20/19 21:28) Home Medications: Aspirin 81 gm Chew [Baby Aspirin 81 mg Chew] 81 mg PO DAILY 07/20/19 [ History] Atorvastatin Calcium 40 mg PO DAILY 07/20/19 [History] Citalopram Hydrobromide [Celexa] 40 mg PO DAILY 07/20/19 [History] Diazepam [Valium] 4 mg PO Q6H PRN 07/20/19 [History] Ferrous Gluconate 324 mg PO BIDWM 07/20/19 [History] Hydrocodone Bit/Acetaminophen [Hydrocodon-Acetaminophn 10-325] 1 tab PO Q6H PRN 07/20/19 [History] Losartan Potassium 100 mg PO DAILY 07/20/19 [History] Sennosides/Docusate Sodium [Docusate Sodium-Sennosides Tab] 2 tab PO BID [History] Sildenafil Citrate 100 mg PO UD PRN 07/20/19 [History] Verapamil HCl 80 mg [Calan 80 mg] 80 mg PO TID 07/20/19 [History] Hx Tetanus, Diphtheria Vaccination/Date Given: Yes Hx Influenza Vaccination/Date Given: Yes Hx Pneumococcal Vaccination/Date Given: Yes - Review of Systems Constitutional: No Fever, No Chills Eyes: No Symptoms Ears, Nose, & Throat: No Symptoms Respiratory: No Cough, No Dyspnea Cardiac: No Chest Pain, No Edema, No Syncope Abdominal/Gastrointestinal: Abdominal Pain, Nausea, Melena, No Vomiting, No Diarrhea Genitourinary Symptoms: No Dysuria Musculoskeletal: No Back Pain, No Neck Pain Skin: No Rash Neurological: No Dizziness, No Focal Weakness, No Sensory Changes Psychological: No Symptoms Endocrine: No Symptoms All Other Systems: Reviewed and Negative - Past Medical History Pertinent Past Medical History: Yes Neurological History: Migraines, Stroke, TIA ENT History: No Pertinent History Cardiac History: Deep Vein Thrombosis, High Cholesterol, Hypertension, Other Respiratory History: COPD, Emphysema Endocrine Medical History: No Pertinent History Musculoskeletal History: Arthritis, Degenerative Disk Disease, Other GI Medical History: Diverticulosis, Hernia, Other History: Other Psycho-Social History: Anxiety, Depression Male Reproductive Disorders: No Pertinent History Other Medical History: throat cancer with radiation treatment; kidney stones - Past Surgical History Past Surgical History: Yes Neuro Surgical History: No Pertinent History Cardiac: No Pertinent History Respiratory: No Pertinent History Gastrointestinal: Hernia Repair Genitourinary: No Pertinent History Musculoskeletal: Orthopedic Surgery Male Surgical History: No Pertinent History Other Surgical History: took out 3 discs and put in 3 cages with 8 screw in neck & pelvic surgery, hernia surgery; left foot surgery - Social History Smoking Status: Current every day smoker How long have you smoked: 30 years Exposure to second hand smoke: Yes Drug Use: none Patient Lives Alone: No - Nursing Vital Signs Nursing Vital Signs: Initial Vital Signs Temperature 97.4 F 10/17/19 14:22 Pulse Rate 74 10/17/19 14:22 Respiratory Rate 16 10/17/19 14:22 Blood Pressure 124/88 10/17/19 14:22 O2 Sat by Pulse Oximetry 100 10/17/19 14:22 Pain Scale Pain Intensity 7 - Physical Exam General Appearance: no apparent distress, alert Eye Exam: PERRL/EOMI, eyes nml inspection Ears, Nose, Throat Exam: normal ENT inspection, pharynx normal, moist mucous membranes Neck Exam: normal inspection, non-tender, supple, full range of motion Respiratory Exam: normal breath sounds, lungs clear, No respiratory distress Cardiovascular Exam: regular rate/rhythm, normal heart sounds Gastrointestinal/Abdomen Exam: soft, normal bowel sounds, tenderness (very mild abdominal pain without rebound or guarding ), No mass Back Exam: normal inspection, normal range of motion, No CVA tenderness, No vertebral tenderness Extremity Exam: normal inspection, normal range of motion, pelvis stable Neurologic Exam: alert, oriented x 3, cooperative, normal mood/affect, nml cerebellar function, sensation nml, No motor deficits Skin Exam: normal color, warm, dry Ordered Tests: Active Orders 24 hr Category Date Time Status Ticket Sales Agent STAT Care 10/17/19 13:58 Active EKG-ER Only STAT Care 10/17/19 13:57 Active IV Insertion STAT Care 10/17/19 13:57 Active ABDOMEN AND PELVIS W CONTRAST [CT] Stat Exams 10/17/19 13:59 Completed CHEST 2 VIEWS (PA AND LAT) Stat Exams 10/17/19 13:58 Completed CBC W DIFF Stat Lab 10/17/19 14:15 Completed CMP Stat Lab 10/17/19 14:15 Completed ETHYL ALCOHOL Stat Lab 10/17/19 14:15 Completed Hepatic Function Panel Stat Lab 10/17/19 14:15 Completed LIPASE Stat Lab 10/17/19 14:15 Completed Lactic Acid Stat Lab 10/17/19 14:15 Completed NT PRO BNP Stat Lab 10/17/19 14:15 Completed Occult Blood, Other Screening Stat Lab 10/17/19 Completed PROTIME WITH INR Stat Lab 10/17/19 14:15 Completed UA W/RFX UR CULTURE Stat Lab 10/17/19 13:57 Uncollected Medication Summary Discontinued Medications Generic Name Dose Route Start Last Admin Trade Name Freq PRN Reason Stop Dose Admin Sodium Chloride 1,000 mls @ 999 mls/hr 10/17/19 13:57 10/17/19 14:18 Sodium Chloride 0.9% 1000 Ml IV 10/17/19 14:57 999 mls/hr .Q1H1M STA Administration Sodium Chloride Confirm 10/17/19 14:17 Sodium Chloride 0.9% 1000 Ml Administered 10/17/19 14:18 Dose 1,000 mls @ ud .ROUTE .STK-MED ONE Lab/Rad Data: Laboratory Result Diagrams 10/17/19 14:15 10/17/19 14:15 Laboratory Results 10/17/19 10/17/19 10/17/19 Range/Units Unknown 14:15 14:15 WBC (4.0-10.5) K/mm3 RBC (4.1-5.6) M/mm3 Hgb (12.5-18.0) gm/dl Hct (42-50) % MCV (78-100) fl MCH (26-32) pg MCHC (32-36) g/dl RDW (11.5-14.0) % Plt Count (150-450) K/mm3 MPV (7.5-11.0) fl Gran % (36.0-66.0) % Eos # (Auto) (0-0.5) Absolute Lymphs (auto) (1.0-4.6) Absolute Monos (auto) (0.0-1.3) Lymphocytes % (24.0-44.0) % Monocytes % (0.0-12.0) % Eosinophils % (0.00-5.0) % Basophils % (0.0-0.4) % Absolute Granulocytes (1.4-6.9) Basophils # (0-0.4) PT 11.2 (8.83-12.87) SECONDS INR 0.99 (0.8-3.0) Sodium 137 (137-145) mmol/L Potassium 4.0 (3.5-5.1) mmol/L Chloride 102 (98-107) mmol/L Carbon Dioxide 25 (22-30) mmol/L Anion Gap 14.0 (5-15) MEQ/L BUN 8 L (9-20) mg/dL Creatinine 0.87 (0.66-1.25) mg/dL Estimated GFR > 60.0 ML/MIN Glucose 92 (74-106) mg/dL Lactic Acid (0.4-2.0) Calcium 9.5 (8.4-10.2) mg/dL Total Bilirubin 0.40 (0.2-1.3) mg/dL Direct Bilirubin 0.1 (0.0-0.4) mg/dL AST 29 (17-59) U/L ALT 30 (0-50) U/L Alkaline Phosphatase 94 (38-126) U/L NT-Pro-B Natriuret Pep 63.9 (0-900) pg/mL Serum Total Protein 7.5 (6.3-8.2) g/dL Albumin 4.2 (3.5-5.0) g/dL Lipase 290 (23-300) U/L Stool Occult Blood NEGATIVE (Negative) Ethyl Alcohol < 10 (0-10) mg/dL 10/17/19 10/17/19 Range/Units 14:15 14:15 WBC 8.9 (4.0-10.5) K/mm3 RBC 5.75 H (4.1-5.6) M/mm3 Hgb 17.4 (12.5-18.0) gm/dl Hct 51.4 H (42-50) % MCV 89.4 (78-100) fl MCH 30.3 (26-32) pg MCHC 33.9 (32-36) g/dl RDW 13.9 (11.5-14.0) % Plt Count 209 (150-450) K/mm3 MPV 10.1 (7.5-11.0) fl Gran % 59.7 (36.0-66.0) % Eos # (Auto) 0.05 (0-0.5) Absolute Lymphs (auto) 2.63 (1.0-4.6) Absolute Monos (auto) 0.86 (0.0-1.3) Lymphocytes % 29.7 (24.0-44.0) % Monocytes % 9.7 (0.0-12.0) % Eosinophils % 0.6 (0.00-5.0) % Basophils % 0.3 (0.0-0.4) % Absolute Granulocytes 5.29 (1.4-6.9) Basophils # 0.03 (0-0.4) PT (8.83-12.87) SECONDS INR (0.8-3.0) Sodium (137-145) mmol/L Potassium (3.5-5.1) mmol/L Chloride (98-107) mmol/L Carbon Dioxide (22-30) mmol/L Anion Gap (5-15) MEQ/L BUN (9-20) mg/dL Creatinine (0.66-1.25) mg/dL Estimated GFR ML/MIN Glucose (74-106) mg/dL Lactic Acid 2.0 (0.4-2.0) Calcium (8.4-10.2) mg/dL Total Bilirubin (0.2-1.3) mg/dL Direct Bilirubin (0.0-0.4) mg/dL AST (17-59) U/L ALT (0-50) U/L Alkaline Phosphatase (38-126) U/L NT-Pro-B Natriuret Pep (0-900) pg/mL Serum Total Protein (6.3-8.2) g/dL Albumin (3.5-5.0) g/dL Lipase (23-300) U/L Stool Occult Blood (Negative) Ethyl Alcohol (0-10) mg/dL - Progress Progress Note: 10/17/19 14:23 differential diagnosis includes kidney stone, compression fracture, infection, UTI, triple AAA - basic labs including: CBC, lipase, CMP, UA - insert IV for fluids, pain meds, nausea control - consider imaging: CT ab/pelvis 10/17/19 15:29 CT scan shows possible early diverticulitis. I will write for antibiotics for home. The patient's h/h is stable. rectal hemacult was negative for blood. Patient's pain improved and patient is feeling better. He will need an abdominal reexam with PCP in 24 hours with PCP. He will return here for new or changing symptoms. - Departure Departure Disposition: Home Clinical Impression: Diverticulitis large intestine Condition: Stable Critical Care Time: No Referrals: REMBERTO RODRIGUEZ [Primary Care Provider] - Instructions: Gastrointestinal Bleeding (DC) Prescriptions: Ciprofloxacin [Cipro 500 MG] 500 mg PO BID #14 tablet Metronidazole 500 mg [Flagyl 500 MG] 500 mg PO TID #21 tablet
[2019-10-17 14:25] LABS: Absolute Neutrophil Ct (ANC) 5.29 (1.4-6.9); BASOPHIL % 0.3 % (0.0-0.4); Basophil (Absolute #) 0.03 (0-0.4); Eosinophil % 0.6 % (0.00-5.0); Eosinophil (Absolute #) 0.05 (0-0.5); Hematocrit 51.4 % (42-50); Hemoglobin 17.4 gm/dl (12.5-18.0); Lymphocyte (Absolute #) 2.63 (1.0-4.6); Lymphocytes % 29.7 % (24.0-44.0); Mean Cell Volume 89.4 fl (78-100); Mean Corpuscular Hemoglobin 30.3 pg (26-32); Mean Corpuscular Hgb Concent. 33.9 g/dl (32-36); Mean Platelet Volume 10.1 fl (7.5-11.0); Monocyte (Absolute #) 0.86 (0.0-1.3); Monocytes % 9.7 % (0.0-12.0); Neutrophil % 59.7 % (36.0-66.0); Platelet Count 209 K/mm3 (150-450); Red Blood Count 5.75 M/mm3 (4.1-5.6); Red Cell Distribution Width 13.9 % (11.5-14.0); White Blood Count 8.9 K/mm3 (4.0-10.5)
[2019-10-17 14:34] LABS: INR 0.99 (0.8-3.0); PROTIME 11.2 SECONDS (8.83-12.87)
[2019-10-17 14:49] LABS: ALBUMIN 4.2 g/dL (3.5-5.0); ALKALINE PHOSPHATASE 94 U/L (38-126); BLOOD UREA NITROGEN 8 mg/dL (9-20); CHLORIDE 102 mmol/L (98-107); Calcium 9.5 mg/dL (8.4-10.2); Carbon Dioxide 25 mmol/L (22-30); Creatinine 1 0.87 mg/dL (0.66-1.25); Direct Bilirubin 0.1 mg/dL (0.0-0.4); Glucose 92 mg/dL (74-106); LIPASE 290 U/L (23-300); NT PRO BNP 63.9 pg/mL (0-900); SGOT/AST 29 U/L (17-59); SGPT/ALT 30 U/L (0-50); SODIUM 137 mmol/L (137-145); Total Protein 7.5 g/dL (6.3-8.2)
[2019-10-17 14:55] LABS: ETHYL ALCOHOL < 10 mg/dL (0-10)
--- NOTE | 2019-10-17 15:13 | XRAY ---
Indication: Pneumonia. Comparison: July 20, 2019. PA/lateral chest remains hyperinflated and clear. Heart is not enlarged. Bony thorax intact again with mild osteopenia, degenerative changes, levoscoliosis, and lower cervical fusion surgery. Impression: Stable nonacute hyperinflated chest with chronic features.
--- NOTE | 2019-10-17 15:18 | XRAY ---
Indication: Abdomen pain. Lower GI bleed. Multiple contiguous axial images obtained through the abdomen and pelvis using 80 cc Isovue 370 contrast only. Comparison: July 22, 2019. Lung bases remain hyperinflated and clear. Heart is not enlarged. Stable small hiatal hernia. Noncontrasted stomach and bowel loops appear nonobstructed. Normal appendix. Again scattered descending and sigmoid diverticulosis now with minimal stranding, possible mild/early diverticulitis. No free fluid/air. Stable hepatic/splenic calcified granulomas, hepatic cysts, 23 cm hepatomegaly, and left mid renal exophytic cyst. Remaining liver, gallbladder, pancreas, spleen, adrenal glands, kidneys, ureters, and bladder appear unremarkable. Stable mild aortoiliac calcifications. No AAA or pathologic retroperitoneal lymphadenopathy. Osseous structures again demonstrates mild degenerative changes throughout the thoracolumbar spine, L4-S1 fusion surgery, L5-S1 laminectomy, and moderate right hip degenerative arthropathy. Impression: 1. Again scattered colonic diverticulosis with now minimal stranding in the descending/sigmoid colon. Rule out mild/early diverticulitis. 2. Stable hiatal hernia, hepatic cysts, hepatomegaly, left renal cysts, evidence for old granulomatous disease, and chronic bony findings.
[2019-10-17 15:46] VITALS: BP 137/90; PULSE 94; O2SAT 99
[2019-10-17 15:54] LABS: ABO TYPING O; Antibody Screen NEGATIVE (NEGATIVE); RH TYPING POSITIVE
== END 2019-10-17 15:58 | disposition home health service (06) ==
LOC: ED 13:33
DX: K57.32 Diverticulitis of large intestine without perforation or abscess without bleeding (principal)
CPT/HCPCS: 36000; 36415; 71046; 74177; 80053; 80076; 80307; 82272; 83605; 83690; 83880; 85025; 85610; 86850; 86900; 86901; 93005; 93041; 96360; 99284; G0480

== ENCOUNTER 2020-02-15 00:17 | Observation (INO) | payer MEDICARE ==
[2020-02-15] MEDS ORDERED: BABY ASPIRIN 81 MG CHEW PO ONE (00:40)
[2020-02-15] MEDS ORDERED: PLAVIX 75 MG Tablet PO ONE (00:40)
[2020-02-15] MEDS ORDERED: Sodium Chloride 0.9% 1000 ML 1,000 ML IV SCH (00:45)
[2020-02-15 00:48] LABS: BASOPHIL % 0.5 % (0.0-0.4); Basophil (Absolute #) 0.06 (0-0.4); Eosinophil % 1.7 % (0.00-5.0); Eosinophil (Absolute #) 0.19 (0-0.5); Hematocrit 53.8 % (42-50); Hemoglobin 18.7 gm/dl (12.5-18.0); Lymphocyte (Absolute #) 4.01 (1.0-4.6); Lymphocytes % 36.5 % (24.0-44.0); Mean Cell Volume 88.3 fl (78-100); Mean Corpuscular Hemoglobin 30.7 pg (26-32); Mean Corpuscular Hgb Concent. 34.8 g/dl (32-36); Mean Platelet Volume 10.5 fl (7.5-11.0); Monocyte (Absolute #) 1.04 (0.0-1.3); Monocytes % 9.5 % (0.0-12.0); Neutrophil % 51.8 % (36.0-66.0); Platelet Count 229 K/mm3 (150-450); Red Blood Count 6.09 M/mm3 (4.1-5.6); Red Cell Distribution Width 14.2 % (11.5-14.0)
[2020-02-15] MEDS ORDERED: Catapres 0.1 MG PO ONE (00:49)
--- NOTE | 2020-02-15 00:49 | ERPHSYRPT ---
- History of Present Illness Time Seen by Provider: 02/15/20 00:45 Patient Subjective Stated Complaint: PT STATES HE HAS BEEN HAVING NUMBNESS AND TINGLING IN THE LT FACE INTERMITENTLY ALL DAY. STATES HE HAS ALOS HAD CHEST PRESSURE FOR THE LAST 1 HOUR. STATES HE HAS FELT THIS WAY PREVIOUSLY WHEN HE HAD A TIA. STATES HE HAS ALSO HAD SOME BALANCE PROBLEMS TODAY. Triage Nursing Assessment: pt alert and oriented, answers questions approp. pt ambulatory, uses cane, steady gait noted. respirations nonlabored. skin warm and dry. pupils equal and reactive. some drift noted to lt upper ext- pt states is his normal after previous cva. weakness noted to lt lower- pt states normal after previous cva. weakness noted to rt lower ext- pt states normal d/t hip arthritis . Physician History: Patient is 59-year-old male with significant past medical history of peripheral vascular disease, carotid artery disease, coronary artery disease, had a history of TIA, started having left-sided numbness and tingling as well as weakness since last 24 hours. He started having the tingling and numbness on his left side of the face so today he came to the emergency room. He says that he had multiple TIAs in the past. Due to possible blockage in his right carotid artery. Patient denies any chest pain, nausea, vomiting. Patient complains of gait imbalance. Time of Onset/Last Time Seen Normal: 24 hours Timing/Duration: yesterday Severity: mild Character of Deficits: new weakness, altered sensation Deficits: no difficulties Baseline/Normal Cognition: alert oriented x 3 Current Cognition: alert oriented x 3 Associated Symptoms: numbness/tingling in legs/feet, paresthesia, No loss of consciousness Allergies/Adverse Reactions: gabapentin Allergy (Verified 02/15/20 00:44) latex Allergy (Verified 02/15/20 00:44) Penicillins Allergy (Verified 02/15/20 00:44) Home Medications: Aspirin 81 gm Chew [Baby Aspirin 81 mg Chew] 81 mg PO DAILY 07/20/19 [ History] Atorvastatin Calcium 40 mg PO DAILY 07/20/19 [History] Citalopram Hydrobromide [Celexa] 40 mg PO DAILY 07/20/19 [History] Diazepam [Valium] 4 mg PO Q6H PRN 07/20/19 [History] Ferrous Gluconate 324 mg PO BIDWM 07/20/19 [History] Hydrocodone Bit/Acetaminophen [Hydrocodon-Acetaminophn 10-325] 1 tab PO Q6H PRN 07/20/19 [History] Losartan Potassium 100 mg PO DAILY 07/20/19 [History] Sennosides/Docusate Sodium [Docusate Sodium-Sennosides Tab] 2 tab PO BID [History] Sildenafil Citrate 100 mg PO UD PRN 07/20/19 [History] Verapamil HCl 80 mg [Calan 80 mg] 80 mg PO TID 07/20/19 [History] Hx Tetanus, Diphtheria Vaccination/Date Given: Yes (2016) Hx Influenza Vaccination/Date Given: Yes Hx Pneumococcal Vaccination/Date Given: Yes Immunizations Up to Date: Yes Travel Risk - International Travel Have you traveled outside of the country in past 3 weeks: No Have you or anyone close to you been diagnosed with or: No Do your reside in a community with a known COVID-19 case?: Yes If Yes where:: [facility] - Coronavirus Screening Has patient experienced Coronavirus symptoms: No - Review of Systems Constitutional: No Fever, No Chills Eyes: No Symptoms Ears, Nose, & Throat: No Symptoms Respiratory: No Cough, No Dyspnea Cardiac: No Chest Pain, No Edema, No Syncope Abdominal/Gastrointestinal: No Abdominal Pain, No Nausea, No Vomiting, No Diarrhea Genitourinary Symptoms: No Dysuria Musculoskeletal: No Back Pain, No Neck Pain Skin: No Rash Neurological: Focal Weakness, Gait Changes, Parasthesia, Sensory Changes, No Dizziness Psychological: No Symptoms Endocrine: No Symptoms All Other Systems: Reviewed and Negative - Past Medical History Pertinent Past Medical History: Yes Neurological History: Migraines, Stroke, TIA ENT History: No Pertinent History Cardiac History: Deep Vein Thrombosis, High Cholesterol, Hypertension, Other Respiratory History: COPD, Emphysema Endocrine Medical History: No Pertinent History Musculoskeletal History: Arthritis, Degenerative Disk Disease, Other GI Medical History: Diverticulosis, Hernia, Other History: Other Psycho-Social History: Anxiety, Depression Male Reproductive Disorders: No Pertinent History Other Medical History: throat cancer with radiation treatment; kidney stones. rt carotid blockage- watching no treatment at this time - Past Surgical History Past Surgical History: Yes Neuro Surgical History: No Pertinent History Cardiac: No Pertinent History Respiratory: No Pertinent History Gastrointestinal: Hernia Repair Genitourinary: No Pertinent History Musculoskeletal: Orthopedic Surgery Male Surgical History: No Pertinent History Other Surgical History: took out 3 discs and put in 3 cages with 8 screw in neck & pelvic surgery, hernia surgery; left foot surgery - Social History Smoking Status: Current every day smoker How long have you smoked: 18 years Exposure to second hand smoke: Yes Drug Use: marijuana Patient Lives Alone: No - Nursing Vital Signs Nursing Vital Signs: Initial Vital Signs Temperature 98.1 F 02/15/20 00:19 Pulse Rate 64 02/15/20 00:19 Respiratory Rate 20 02/15/20 00:19 Blood Pressure 178/125 02/15/20 00:19 O2 Sat by Pulse Oximetry 97 02/15/20 00:19 Pain Scale Pain Intensity 4 - Mathieu Coma Scale Best Eye Response ([place]): (4) open spontaneously Best Verbal Response (Mathieu): (5) oriented Best Motor Response ([place]): (6) obeys commands Mathieu Total: 15 - Physical Exam General Appearance: no apparent distress, alert Eye Exam: bilateral eye: PERRL, EOMI Ears, Nose, Throat Exam: normal ENT inspection, moist mucous membranes Neck Exam: normal inspection, non-tender, supple Respiratory: normal breath sounds, lungs clear, airway intact, No respiratory distress Cardiovascular: regular rate/rhythm, No edema Gastrointestinal: soft, No tenderness, No distention Back Exam: normal inspection Extremity Exam: normal inspection, No pedal edema Mental Status: alert, oriented x 3 linesperson Exam: tongue midline Coordination/Gait: normal finger to nose, normal gait Skin Exam: normal color, warm, dry, No rash SpO2: 97 - Course Nursing assessment & vital signs reviewed: Yes EKG Interpreted by Me: Sinus Rhythm - Radiology Exams Chest X-ray Interpretation: Reviewed by me (COPD changes) - CT Exams Head CT Interpretation: Tele-radiologist Report (no acute changes) Ordered Tests: Active Orders 24 hr Category Date Time Status Certified Retinal Angiographer STAT Care 02/15/20 00:41 Active EKG-ER Only STAT Care 02/15/20 00:40 Active NPO (ED) STAT Care 02/15/20 00:41 Active NPO (ED) STAT Care 02/15/20 01:51 Active Oxygen-ED Only Nasal Cannula 2 lpm Care 02/15/20 00:40 Active Tele-Health Consult ROUTINE Cons 02/15/20 01:51 Active CHEST 1 VIEW (PORTABLE) Stat Exams 02/15/20 00:42 Taken HEAD WITHOUT CONTRAST [CT] Stat Exams 02/15/20 00:41 Taken CBC W DIFF Stat Lab 02/15/20 00:45 Completed CMP Stat Lab 02/15/20 00:45 Completed PROTIME WITH INR Stat Lab 02/15/20 00:45 Completed TROPONIN Stat Lab 02/15/20 00:45 Completed Medication Summary Generic Name Dose Route Start Last Admin Trade Name Freq PRN Reason Stop Dose Admin Sodium Chloride 1,000 mls @ 100 mls/hr 02/15/20 00:45 02/15/20 01:03 Sodium Chloride 0.9% 1000 Ml IV 03/16/20 00:44 100 mls/hr .Q10H NICK Administration Discontinued Medications Generic Name Dose Route Start Last Admin Trade Name Freq PRN Reason Stop Dose Admin Aspirin 81 mg 02/15/20 00:40 Baby Aspirin 81 Mg Chew PO 02/15/20 00:41 STAT ONE Clonidine 0.1 mg 02/15/20 00:49 02/15/20 01:17 Catapres 0.1 Mg PO 02/15/20 00:50 0.1 mg STAT ONE Administration Clonidine Confirm 02/15/20 01:00 Catapres 0.1 Mg Administered 02/15/20 01:01 Dose 0.1 mg .ROUTE .STK-MED ONE Clopidogrel Bisulfate 75 mg 02/15/20 00:40 02/15/20 01:17 Plavix 75 Mg Tablet PO 02/15/20 00:41 75 mg STAT ONE Administration Clopidogrel Bisulfate Confirm 02/15/20 01:17 Plavix 75 Mg Tablet Administered 02/15/20 01:18 Dose 75 mg .ROUTE .STK-MED ONE Lab/Rad Data: Laboratory Result Diagrams 02/15/20 00:45 02/15/20 00:45 Laboratory Results 02/15/20 02/15/20 02/15/20 Range/Units 00:45 00:45 00:45 WBC (4.0-10.5) K/mm3 RBC (4.1-5.6) M/mm3 Hgb (12.5-18.0) gm/dl Hct (42-50) % MCV (78-100) fl MCH (26-32) pg MCHC (32-36) g/dl RDW (11.5-14.0) % Plt Count (150-450) K/mm3 MPV (7.5-11.0) fl Gran % (36.0-66.0) % Eos # (Auto) (0-0.5) Absolute Lymphs (auto) (1.0-4.6) Absolute Monos (auto) (0.0-1.3) Lymphocytes % (24.0-44.0) % Monocytes % (0.0-12.0) % Eosinophils % (0.00-5.0) % Basophils % (0.0-0.4) % Absolute Granulocytes (1.4-6.9) Basophils # (0-0.4) PT 10.8 (8.83-12.87) SECONDS INR 0.96 (0.8-3.0) Sodium 136 L (137-145) mmol/L Potassium 3.9 (3.5-5.1) mmol/L Chloride 104 (98-107) mmol/L Carbon Dioxide 24 (22-30) mmol/L Anion Gap 12.3 (5-15) MEQ/L BUN 13 (9-20) mg/dL Creatinine 0.92 (0.66-1.25) mg/dL Estimated GFR > 60.0 ML/MIN Glucose 91 (74-106) mg/dL Calcium 9.4 (8.4-10.2) mg/dL Total Bilirubin 0.50 (0.2-1.3) mg/dL AST 25 (17-59) U/L ALT 23 (0-50) U/L Alkaline Phosphatase 82 (38-126) U/L Troponin I < 0.012 (0.000-0.034) ng/mL Serum Total Protein 7.4 (6.3-8.2) g/dL Albumin 4.3 (3.5-5.0) g/dL 02/15/20 Range/Units 00:45 WBC 11.0 H (4.0-10.5) K/mm3 RBC 6.09 H (4.1-5.6) M/mm3 Hgb 18.7 H (12.5-18.0) gm/dl Hct 53.8 H (42-50) % MCV 88.3 (78-100) fl MCH 30.7 (26-32) pg MCHC 34.8 (32-36) g/dl RDW 14.2 H (11.5-14.0) % Plt Count 229 (150-450) K/mm3 MPV 10.5 (7.5-11.0) fl Gran % 51.8 (36.0-66.0) % Eos # (Auto) 0.19 (0-0.5) Absolute Lymphs (auto) 4.01 (1.0-4.6) Absolute Monos (auto) 1.04 (0.0-1.3) Lymphocytes % 36.5 (24.0-44.0) % Monocytes % 9.5 (0.0-12.0) % Eosinophils % 1.7 (0.00-5.0) % Basophils % 0.5 (0.0-0.4) % Absolute Granulocytes 5.70 (1.4-6.9) Basophils # 0.06 (0-0.4) PT (8.83-12.87) SECONDS INR (0.8-3.0) Sodium (137-145) mmol/L Potassium (3.5-5.1) mmol/L Chloride (98-107) mmol/L Carbon Dioxide (22-30) mmol/L Anion Gap (5-15) MEQ/L BUN (9-20) mg/dL Creatinine (0.66-1.25) mg/dL Estimated GFR ML/MIN Glucose (74-106) mg/dL Calcium (8.4-10.2) mg/dL Total Bilirubin (0.2-1.3) mg/dL AST (17-59) U/L ALT (0-50) U/L Alkaline Phosphatase (38-126) U/L Troponin I (0.000-0.034) ng/mL Serum Total Protein (6.3-8.2) g/dL Albumin (3.5-5.0) g/dL - Progress Progress: improved Discussed with : Juan Will see patient in: hospital (observation) Counseled pt/family regarding: lab results, diagnosis, need for follow-up, rad results - Departure Departure Disposition: Observation Clinical Impression: TIA (transient ischemic attack) HTN (hypertension) Qualifiers: Hypertension type: essential hypertension Qualified Code(s): I10 - Essential ( primary) hypertension Condition: Fair Critical Care Time: Yes Critical Care Time(excluding separately billable procedures): Critical 30-74 mins Referrals: REMBERTO RODRIGUEZ [Primary Care Provider] - Instructions: Transient Ischemic Attack (DC)
[2020-02-15 00:51] LABS: INR 0.96 (0.8-3.0); PROTIME 10.8 SECONDS (8.83-12.87)
[2020-02-15 00:55] LABS: ALBUMIN 4.3 g/dL (3.5-5.0); ALKALINE PHOSPHATASE 82 U/L (38-126); ANION GAP 12.3 MEQ/L (5-15); BLOOD UREA NITROGEN 13 mg/dL (9-20); CHLORIDE 104 mmol/L (98-107); Calcium 9.4 mg/dL (8.4-10.2); Carbon Dioxide 24 mmol/L (22-30); Creatinine 1 0.92 mg/dL (0.66-1.25); Glucose 91 mg/dL (74-106); Potassium 3.9 mmol/L (3.5-5.1); SGOT/AST 25 U/L (17-59); SGPT/ALT 23 U/L (0-50); SODIUM 136 mmol/L (137-145); Total Protein 7.4 g/dL (6.3-8.2)
[2020-02-15] MEDS ORDERED: Sodium Chloride 0.9% 1000 ML 1,000 ML ONE (01:00)
[2020-02-15] MEDS ORDERED: Catapres 0.1 MG ONE (01:00)
[2020-02-15] MEDS ORDERED: PLAVIX 75 MG Tablet ONE (01:17)
[2020-02-15] MEDS: Sodium Chloride 0.9% 1000 ML 1,000 ML IV SCH ×2 (02:47→11:27)
[2020-02-15] MEDS ORDERED: PROVENTIL 2.5 MG/3 ML NEB IH PRN (03:09)
[2020-02-15 05:25] LABS: Hematocrit 50.2 % (42-50); Hemoglobin 17.2 gm/dl (12.5-18.0); Mean Cell Volume 88.5 fl (78-100); Mean Corpuscular Hemoglobin 30.3 pg (26-32); Mean Corpuscular Hgb Concent. 34.3 g/dl (32-36); Mean Platelet Volume 10.2 fl (7.5-11.0); Platelet Count 194 K/mm3 (150-450); Red Blood Count 5.67 M/mm3 (4.1-5.6); Red Cell Distribution Width 13.8 % (11.5-14.0); White Blood Count 8.9 K/mm3 (4.0-10.5)
[2020-02-15 05:49] LABS: ALBUMIN 3.7 g/dL (3.5-5.0); ALKALINE PHOSPHATASE 76 U/L (38-126); ANION GAP 11.9 MEQ/L (5-15); BLOOD UREA NITROGEN 11 mg/dL (9-20); CHLORIDE 107 mmol/L (98-107); Carbon Dioxide 23 mmol/L (22-30); Direct Bilirubin 0.1 mg/dL (0.0-0.4); Glucose 98 mg/dL (74-106); Potassium 3.9 mmol/L (3.5-5.1); SGOT/AST 21 U/L (17-59); SGPT/ALT 21 U/L (0-50); SODIUM 137 mmol/L (137-145); Total Protein 6.3 g/dL (6.3-8.2)
[2020-02-15] MEDS ORDERED: PROVENTIL 2.5 MG/3 ML NEB IH SCH (07:00)
[2020-02-15] MEDS ORDERED: Advair Hfa 230/21 Mcg COMMON CANISTER IH SCH (07:00)
[2020-02-15] MEDS ORDERED: PROVENTIL Solution 2.5 MG/0.5 ML IH ONE (07:08)
--- NOTE | 2020-02-15 09:23 | XRAY ---
Indication: Weakness. Comparison: October 17, 2019. Potable chest remains clear. Heart is not enlarged. Bony thorax intact again with mild osteopenia, degenerative changes, levoscoliosis, and lower cervical fusion. Impression: Stable nonacute chest with chronic bony findings.
--- NOTE | 2020-02-15 09:25 | XRAY ---
Indication: Weakness, dizziness, and facial tingling. Multiple contiguous axial images obtained through the head without contrast. Comparison: July 20, 2019. Again normal appearing brain parenchyma, ventricles, and bony calvarium. Small focus left maxillary sinus mucosal thickening. Remaining visualized paranasal sinuses and mastoid air cells are clear. Impression: New left maxillary sinus disease. Remaining CT head without contrast exam is negative. Comment: Preliminary interpretation was made by [facility]. No critical discrepancy.
[2020-02-15] MEDS ORDERED: PLAVIX 75 MG Tablet PO SCH (10:00)
[2020-02-15] MEDS ORDERED: ENOXAPARIN SODIUM SQ SCH (10:00)
[2020-02-15] MEDS ORDERED: Norco 10/325 MG Tablet PO PRN (11:50)
[2020-02-15] MEDS ORDERED: DIAZEPAM PO PRN (11:50)
[2020-02-15] MEDS ORDERED: SILDENAFIL CITRATE 100 MG PO PRN (11:50)
[2020-02-15] MEDS ORDERED: Valium 5 MG PO PRN (11:56)
[2020-02-15] MEDS ORDERED: Senokot-S Tablet PO SCH (12:00)
[2020-02-15] MEDS ORDERED: ceLEXa 20 MG PO SCH (12:00)
[2020-02-15] MEDS ORDERED: ECOTRIN 81 MG PO SCH (12:00)
[2020-02-15] MEDS ORDERED: FEOSOL 325 MG PO SCH (12:00)
[2020-02-15] MEDS ORDERED: ZOCOR 20MG PO SCH (12:00)
[2020-02-15] MEDS ORDERED: Cozaar 50 MG PO SCH (12:00)
[2020-02-15] MEDS ORDERED: MEDICATION INTERVENTION PO SCH (12:00)
[2020-02-15] MEDS ORDERED: CALAN 80 MG PO SCH (15:00)
--- NOTE | 2020-02-15 15:16 | PCM.SSS ---
History of Present Illness - Chief Complaint Chief Complaint: TIA History of Present Illness: Mr.CLEMENTS DONAHUE is a 59 year old left handed male who served in the [employer] forces and has an extensive PMHx including Hx CVA without residual 1980,Hx TIA 5 yrs ago,COPD current smoker, CAD-CA 1980,HLD,HX DVT,HX throat cancer with radiation remote , HX surgery for DDD cervical and lumbar spine,Hx renal stones.DJD right hip awaiting surgery.Patient had been followed at [facility] but is transfering care to local provider,Dr Taylor Olguin. Patient presented to ER with C/O left facial numbness and tingling that started 1-2 days ago and balance issue like "equilibrium problem" that caused him to lean to the left and left sided weakness.He states this was the same way he felt during a TIA about 5 years ago when he was started on Aspirin. HX CVA 1980 after an CA that cause left hemiplegia that eventually resolved. ER eval -CT Head without contrast showed no acute findings.TeleNeuro consult Dg possible acute ischemic stroke R/O cardioembolic,large artery or intracranial atherosclerosis,small vessel dz. - Review of Systems Constitutional: Other (no fever or chills or lethargy) Eyes: No Symptoms Ears, Nose, & Throat: No Symptoms Respiratory: No Symptoms, Other (smokes 1/2ppd occas cough) Cardiac: Other (had chest pressure yeasterday), No Chest Pain, No Edema, No Syncope Abdominal/Gastrointestinal: No Symptoms Genitourinary Symptoms: Other (no urinary frequency or dysuria or hematuria) Musculoskeletal: Back Pain, Neck Pain, Other (right hip pain awaiting surgery, chronic neck and LBP) Skin: Other (no rash) Neurological: Focal Weakness (LLE,LUE tingling left face ), Parasthesia Psychological: No Symptoms Endocrine: No Symptoms Hematologic/Lymphatic: Other (HX DVT remote,on aspirin therapy since last TIA) Immunological/Allergic: No Symptoms Medications & Allergies Home Medications: Home Medication List Aspirin 81 gm Chew [Baby Aspirin 81 mg Chew] 81 mg PO DAILY 07/20/19 [ History Confirmed 02/15/20] Atorvastatin Calcium 40 mg PO DAILY 07/20/19 [History Confirmed 02/15/20] Citalopram Hydrobromide [Celexa] 40 mg PO DAILY 07/20/19 [History Confirmed ] Diazepam [Valium] 4 mg PO Q6H PRN 07/20/19 [History Confirmed 02/15/20] Ferrous Gluconate 324 mg PO BIDWM 07/20/19 [History Confirmed 02/15/20] Hydrocodone Bit/Acetaminophen [Hydrocodon-Acetaminophn 10-325] 1 tab PO Q6H PRN 07/20/19 [History Confirmed 02/15/20] Losartan Potassium 100 mg PO DAILY 07/20/19 [History Confirmed 02/15/20] Sennosides/Docusate Sodium [Docusate Sodium-Sennosides Tab] 2 tab PO BID [History Confirmed 02/15/20] Sildenafil Citrate 100 mg PO UD PRN 07/20/19 [History Confirmed 02/15/20] Verapamil HCl 80 mg [Calan 80 mg] 80 mg PO TID 07/20/19 [History Confirmed 02/15/20] Allergies/Adverse Reactions: Allergies Allergy/AdvReac Type Severity Reaction Status Date / Time gabapentin Allergy Verified 02/15/20 00:44 latex Allergy Verified 02/15/20 00:44 Penicillins Allergy Verified 02/15/20 00:44 - Past Medical History Past Medical History: Yes Neurological History: Migraines, Stroke, TIA ENT History: No Pertinent History Cardiac History: Deep Vein Thrombosis, High Cholesterol, Hypertension, Other Respiratory History: COPD, Emphysema Endocrine Medical History: No Pertinent History Musculoskelatal History: Arthritis, Degenerative Disk Disease, Other GI Medical History: Diverticulosis, Hernia, Other History: Other Pyscho-Social History: Anxiety, Depression Male Reproductive Disorders: No Pertinent History Comment: throat cancer with radiation treatment; kidney stones. rt carotid blockage- watching no treatment at this time - Past Surgical History Past Surgical History: Yes Neuro Surgical History: No Pertinent History Cardiac History: No Pertinent History Respiratory Surgery: No Pertinent History GI Surgical History: Hernia Repair Genitourinary Surgical Hx: No Pertinent History Musculskeletal Surgical Hx: Orthopedic Surgery Male Surgical History: No Pertinent History Other Surgical History: took out 3 discs and put in 3 cages with 8 screw in neck & pelvic surgery, hernia surgery; left foot surgery - Social History Smoking Status: Current every day smoker How long have you smoked: 18 yrs Exposure to second hand smoke: Yes Alcohol: None Drug Use: marijuana - Physical Exam Vital Signs: Vital Signs - 24 hr Temp Pulse Resp BP Pulse Ox 02/15/20 11:23 98.3 F 75 18 117/61 95 02/15/20 07:14 97.7 F 69 20 114/56 96 02/15/20 07:12 64 14 95 02/15/20 03:14 97.9 F 71 20 143/94 98 02/15/20 03:13 62 18 95 02/15/20 02:40 63 16 114/79 98 02/15/20 02:03 64 18 128/73 97 02/15/20 01:54 97 02/15/20 01:18 63 18 152/106 96 02/15/20 00:19 98.1 F 64 20 178/125 97 General Appearance: no apparent distress Neurologic Exam: alert, oriented x 3, cooperative, normal mood/affect, motor deficits (LUE3-4/5,LLE3/5), facial droop (mild left increase in nasal labial fold), abnormal gait (walks with cane due to right hip pain/severe DJD), other ( speech and mentation are normal) Eye Exam: PERRL/EOMI Ears, Nose, Throat Exam: normal ENT inspection Neck Exam: other (no JVD,I do not appreciate carotid AA bruit) Gastrointestinal/Abdomen Exam: soft, normal bowel sounds (nontender) Rectal Exam: not done Back Exam: decreased range of motion, muscle spasm Extremity Exam: normal inspection, other (no pitting edema,no calf tenderness) Skin Exam: normal color, warm, dry Results - Labs Lab/Micro Results: Lab Results-Last 24 Hours 02/15/20 02/15/20 02/15/20 Range/Units 00:45 00:45 00:45 WBC 11.0 H (4.0-10.5) K/mm3 RBC 6.09 H (4.1-5.6) M/mm3 Hgb 18.7 H (12.5-18.0) gm/dl Hct 53.8 H (42-50) % MCV 88.3 (78-100) fl MCH 30.7 (26-32) pg MCHC 34.8 (32-36) g/dl RDW 14.2 H (11.5-14.0) % Plt Count 229 (150-450) K/mm3 MPV 10.5 (7.5-11.0) fl Gran % 51.8 (36.0-66.0) % Eos # (Auto) 0.19 (0-0.5) Absolute Lymphs (auto) 4.01 (1.0-4.6) Absolute Monos (auto) 1.04 (0.0-1.3) Lymphocytes % 36.5 (24.0-44.0) % Monocytes % 9.5 (0.0-12.0) % Eosinophils % 1.7 (0.00-5.0) % Basophils % 0.5 (0.0-0.4) % Absolute Granulocytes 5.70 (1.4-6.9) Basophils # 0.06 (0-0.4) PT 10.8 (8.83-12.87) SECONDS INR 0.96 (0.8-3.0) Sodium 136 L (137-145) mmol/L Potassium 3.9 (3.5-5.1) mmol/L Chloride 104 (98-107) mmol/L Carbon Dioxide 24 (22-30) mmol/L Anion Gap 12.3 (5-15) MEQ/L BUN 13 (9-20) mg/dL Creatinine 0.92 (0.66-1.25) mg/dL Estimated GFR > 60.0 ML/MIN Glucose 91 (74-106) mg/dL Calcium 9.4 (8.4-10.2) mg/dL Total Bilirubin 0.50 (0.2-1.3) mg/dL Direct Bilirubin (0.0-0.4) mg/dL AST 25 (17-59) U/L ALT 23 (0-50) U/L Alkaline Phosphatase 82 (38-126) U/L Troponin I (0.000-0.034) ng/mL Serum Total Protein 7.4 (6.3-8.2) g/dL Albumin 4.3 (3.5-5.0) g/dL 02/15/20 02/15/20 02/15/20 Range/Units 00:45 05:10 05:10 WBC 8.9 (4.0-10.5) K/mm3 RBC 5.67 H (4.1-5.6) M/mm3 Hgb 17.2 (12.5-18.0) gm/dl Hct 50.2 H (42-50) % MCV 88.5 (78-100) fl MCH 30.3 (26-32) pg MCHC 34.3 (32-36) g/dl RDW 13.8 (11.5-14.0) % Plt Count 194 (150-450) K/mm3 MPV 10.2 (7.5-11.0) fl Gran % (36.0-66.0) % Eos # (Auto) (0-0.5) Absolute Lymphs (auto) (1.0-4.6) Absolute Monos (auto) (0.0-1.3) Lymphocytes % (24.0-44.0) % Monocytes % (0.0-12.0) % Eosinophils % (0.00-5.0) % Basophils % (0.0-0.4) % Absolute Granulocytes (1.4-6.9) Basophils # (0-0.4) PT (8.83-12.87) SECONDS INR (0.8-3.0) Sodium 137 (137-145) mmol/L Potassium 3.9 (3.5-5.1) mmol/L Chloride 107 (98-107) mmol/L Carbon Dioxide 23 (22-30) mmol/L Anion Gap 11.9 (5-15) MEQ/L BUN 11 (9-20) mg/dL Creatinine 0.80 (0.66-1.25) mg/dL Estimated GFR > 60.0 ML/MIN Glucose 98 (74-106) mg/dL Calcium 9.0 (8.4-10.2) mg/dL Total Bilirubin 0.50 (0.2-1.3) mg/dL Direct Bilirubin 0.1 (0.0-0.4) mg/dL AST 21 (17-59) U/L ALT 21 (0-50) U/L Alkaline Phosphatase 76 (38-126) U/L Troponin I < 0.012 (0.000-0.034) ng/mL Serum Total Protein 6.3 (6.3-8.2) g/dL Albumin 3.7 (3.5-5.0) g/dL - Radiology Impressions Radiology Exams & Impressions: Radiology Procedures Category Date Time Status CAROTID BILATERAL [US] Routine Exams 02/15/20 02:47 Ordered CHEST 1 VIEW (PORTABLE) Stat Exams 02/15/20 00:42 Completed ECHO W/2D AND DOPPLER [US] Routine Exams 02/15/20 02:47 Ordered HEAD WITHOUT CONTRAST [CT] Stat Exams 02/15/20 00:41 Completed - Other Procedures and Tests Respiratory Therapy 02/15/20 02:47 Oxygen Nasal Cannula 2 lpm 02/15/20 03:14 Respiratory Therapy Assessment DAILY Assessment/Plan (1) Stroke determined by clinical assessment Current Visit: Yes Status: Acute Assessment & Plan: possible stroke Code(s): I63.9 - CEREBRAL INFARCTION, UNSPECIFIED (2) Hemiplegia affecting left dominant side Current Visit: Yes Status: Acute Code(s): G81.92 - HEMIPLEGIA, UNSPECIFIED AFFECTING LEFT DOMINANT SIDE (3) Paresthesias with subjective weakness Current Visit: Yes Status: Acute Assessment & Plan: left face Code(s): R20.2 - PARESTHESIA OF SKIN; R53.1 - WEAKNESS (4) HTN (hypertension) Current Visit: Yes Status: Chronic Qualifiers: Hypertension type: essential hypertension Qualified Code(s): I10 - Essential (primary) hypertension Assessment & Plan: controlled on current meds Code(s): I10 - ESSENTIAL (PRIMARY) HYPERTENSION (5) DJD (degenerative joint disease) Current Visit: Yes Status: Chronic Qualifiers: Osteoarthritis location: multiple joints Code(s): M19.90 - UNSPECIFIED OSTEOARTHRITIS, UNSPECIFIED SITE (6) COPD (chronic obstructive pulmonary disease) Current Visit: Yes Status: Chronic Assessment & Plan: current smoker (7) History of throat cancer Current Visit: Yes Status: Resolved Code(s): Z85.819 - PRSNL HX OF MALIG NEOPLM OF UNSP SITE LIP,ORAL CAV,& PHARYNX (8) CAD (coronary artery disease) Current Visit: Yes Status: Resolved Assessment & Plan: CA 1981 no stent Code(s): I25.10 - ATHSCL HEART DISEASE OF [place] CORONARY ARTERY W/O ANG PCTRS (9) Hyperlipidemia Current Visit: Yes Status: Acute Assessment & Plan: NO Hx DM2, A1C this admit =5.44% Code(s): E78.5 - HYPERLIPIDEMIA, UNSPECIFIED Hospital Summary - Hospital Course Hospital Course: Patient was admitted to [facility] with possible stroke. Since admission he has been alert and oriented and no speech or mentation problems.Symptoms or left facial paresthesias and mild L facial droop,weakness LUE and LLE have been the same since admission. Testing per [facility] is not available over the Holiday weekend at this hospital. Patient was accepted to transfer to [facility] stroke unit,Dr Lopez accepted patient. He will be transfered by ALS ambulance. - Vitals & Intake/Output Vital Signs: Vital Signs Temperature 98.3 F 02/15/20 11:23 Pulse Rate 75 02/15/20 11:23 Respiratory Rate 18 02/15/20 11:23 Blood Pressure 117/61 02/15/20 11:23 O2 Sat by Pulse Oximetry 95 02/15/20 11:23 Intake & Output: Intake & Output 02/13/20 02/14/20 02/15/20 02/16/20 11:59 11:59 11:59 11:59 Intake Total 624 360 Output Total 1000 Balance -376 360 Weight 101 kg - Lab Result Diagrams: 02/15/20 05:10 02/15/20 05:10 Lab Results-Last 24 Hrs: Lab Results-Last 24 Hours 02/15/20 02/15/20 02/15/20 Range/Units 00:45 00:45 00:45 WBC 11.0 H (4.0-10.5) K/mm3 RBC 6.09 H (4.1-5.6) M/mm3 Hgb 18.7 H (12.5-18.0) gm/dl Hct 53.8 H (42-50) % MCV 88.3 (78-100) fl MCH 30.7 (26-32) pg MCHC 34.8 (32-36) g/dl RDW 14.2 H (11.5-14.0) % Plt Count 229 (150-450) K/mm3 MPV 10.5 (7.5-11.0) fl Gran % 51.8 (36.0-66.0) % Eos # (Auto) 0.19 (0-0.5) Absolute Lymphs (auto) 4.01 (1.0-4.6) Absolute Monos (auto) 1.04 (0.0-1.3) Lymphocytes % 36.5 (24.0-44.0) % Monocytes % 9.5 (0.0-12.0) % Eosinophils % 1.7 (0.00-5.0) % Basophils % 0.5 (0.0-0.4) % Absolute Granulocytes 5.70 (1.4-6.9) Basophils # 0.06 (0-0.4) PT 10.8 (8.83-12.87) SECONDS INR 0.96 (0.8-3.0) Sodium 136 L (137-145) mmol/L Potassium 3.9 (3.5-5.1) mmol/L Chloride 104 (98-107) mmol/L Carbon Dioxide 24 (22-30) mmol/L Anion Gap 12.3 (5-15) MEQ/L BUN 13 (9-20) mg/dL Creatinine 0.92 (0.66-1.25) mg/dL Estimated GFR > 60.0 ML/MIN Glucose 91 (74-106) mg/dL Calcium 9.4 (8.4-10.2) mg/dL Total Bilirubin 0.50 (0.2-1.3) mg/dL Direct Bilirubin (0.0-0.4) mg/dL AST 25 (17-59) U/L ALT 23 (0-50) U/L Alkaline Phosphatase 82 (38-126) U/L Troponin I (0.000-0.034) ng/mL Serum Total Protein 7.4 (6.3-8.2) g/dL Albumin 4.3 (3.5-5.0) g/dL 02/15/20 02/15/20 02/15/20 Range/Units 00:45 05:10 05:10 WBC 8.9 (4.0-10.5) K/mm3 RBC 5.67 H (4.1-5.6) M/mm3 Hgb 17.2 (12.5-18.0) gm/dl Hct 50.2 H (42-50) % MCV 88.5 (78-100) fl MCH 30.3 (26-32) pg MCHC 34.3 (32-36) g/dl RDW 13.8 (11.5-14.0) % Plt Count 194 (150-450) K/mm3 MPV 10.2 (7.5-11.0) fl Gran % (36.0-66.0) % Eos # (Auto) (0-0.5) Absolute Lymphs (auto) (1.0-4.6) Absolute Monos (auto) (0.0-1.3) Lymphocytes % (24.0-44.0) % Monocytes % (0.0-12.0) % Eosinophils % (0.00-5.0) % Basophils % (0.0-0.4) % Absolute Granulocytes (1.4-6.9) Basophils # (0-0.4) PT (8.83-12.87) SECONDS INR (0.8-3.0) Sodium 137 (137-145) mmol/L Potassium 3.9 (3.5-5.1) mmol/L Chloride 107 (98-107) mmol/L Carbon Dioxide 23 (22-30) mmol/L Anion Gap 11.9 (5-15) MEQ/L BUN 11 (9-20) mg/dL Creatinine 0.80 (0.66-1.25) mg/dL Estimated GFR > 60.0 ML/MIN Glucose 98 (74-106) mg/dL Calcium 9.0 (8.4-10.2) mg/dL Total Bilirubin 0.50 (0.2-1.3) mg/dL Direct Bilirubin 0.1 (0.0-0.4) mg/dL AST 21 (17-59) U/L ALT 21 (0-50) U/L Alkaline Phosphatase 76 (38-126) U/L Troponin I < 0.012 (0.000-0.034) ng/mL Serum Total Protein 6.3 (6.3-8.2) g/dL Albumin 3.7 (3.5-5.0) g/dL - Radiology Exams Ordered Rad Exams-Entire Visit: Radiology Procedures Category Date Time Status CAROTID BILATERAL [US] Routine Exams 02/15/20 02:47 Ordered CHEST 1 VIEW (PORTABLE) Stat Exams 02/15/20 00:42 Completed ECHO W/2D AND DOPPLER [US] Routine Exams 02/15/20 02:47 Ordered HEAD WITHOUT CONTRAST [CT] Stat Exams 02/15/20 00:41 Completed - Procedures and Test Procedures and Tests throughout Hospitalization: Therapy Orders & Screens 02/15/20 02:47 Oxygen Nasal Cannula 2 lpm Comment: 02/15/20 03:14 Respiratory Therapy Assessment DAILY Comment: Diagnosis: TIA 02/15/20 03:15 Respiratory MDI BID Comment: ADVAIR 115/21 2 PUFFS BID Diagnosis: TIA 02/15/20 03:46 Smoking Cessation Education ONCE Comment: Diagnosis: TIA Smoking Status: Current every day smoker How long have you smoked: 18 yrs Have you smoked in the past 12 months: Yes Approximately how many cigarettes per day: 1/2 pack Do you dip or chew tobacco: No - Discharge Disposition: DC TO [facility] Condition: Good Prescriptions: Continue Aspirin 81 gm Chew [Baby Aspirin 81 mg Chew] 81 mg PO DAILY Verapamil HCl 80 mg [Calan 80 mg] 80 mg PO TID Sildenafil Citrate 100 mg PO UD PRN PRN Reason: Erectile Dysfunction Sennosides/Docusate Sodium [Docusate Sodium-Sennosides Tab] 2 tab PO BID Losartan Potassium 100 mg PO DAILY Hydrocodone Bit/Acetaminophen [Hydrocodon-Acetaminophn 10-325] 1 tab PO Q6H PRN PRN Reason: Pain Ferrous Gluconate 324 mg PO BIDWM Diazepam [Valium] 4 mg PO Q6H PRN PRN Reason: Muscle Spasms Citalopram Hydrobromide [Celexa] 40 mg PO DAILY Atorvastatin Calcium 40 mg PO DAILY Follow up with: REMBERTO RODRIGUEZ [Primary Care Provider] - 1 Week
[2020-02-15 16:41] VITALS: BP 163/95; PULSE 67; O2SAT 98
[2020-02-15 16:50] LABS: Risk Ratio 6.7
[2020-02-15] MEDS ORDERED: NON-FORMULARY ITEM (Ferrous Gluconate [Ferrous Gluconate] 324 MG) PO SCH (17:00)
[2020-02-16] MEDS ORDERED: NON-FORMULARY ITEM (Losartan Potassium [Losartan Potassium] 100 MG) PO SCH (10:00)
[2020-02-16] MEDS ORDERED: NON-FORMULARY ITEM (Citalopram Hydrobromide [Celexa] 40 MG) PO SCH (10:00)
[2020-02-16] MEDS ORDERED: NON-FORMULARY ITEM (Atorvastatin Calcium [Atorvastatin Calcium] 40 MG) PO SCH (10:00)
== END 2020-02-15 17:45 | disposition home or self-care (01) ==
LOC: ED 00:17 → MED SURG 02:39
PROVIDERS: ADMIT Family Medicine; ATTEND Family Medicine
DX: I63.9 Cerebral infarction, unspecified (principal); J44.9 Chronic obstructive pulmonary disease, unspecified; I10 Essential (primary) hypertension; E78.00 Pure hypercholesterolemia, unspecified; G81.92 Hemiplegia, unspecified affecting left dominant side; R20.2 Paresthesia of skin; R53.1 Weakness; E78.5 Hyperlipidemia, unspecified; I25.10 Atherosclerotic heart disease of native coronary artery without angina pectoris; F17.200 Nicotine dependence, unspecified, uncomplicated; Z86.73 Personal history of transient ischemic attack (TIA), and cerebral infarction without residual deficits; Z86.718 Personal history of other venous thrombosis and embolism; Z79.899 Other long term (current) drug therapy; Z79.82 Long term (current) use of aspirin; M15.9 Polyosteoarthritis, unspecified; Z85.819 Personal history of malignant neoplasm of unspecified site of lip, oral cavity, and pharynx
CPT/HCPCS: 70450; 80048; 80053; 80061; 80076; 83036; 83721; 84443; 84484; 85025; 85027; 85610; 93005; 93041; 93268; 94640; 94760; 99291; G0378; 36415; 71045; 99284; J1650; J7609; A9270-GY